=== PATIENT | female | born 1985 | race African-American/Black ===

== ENCOUNTER 2016-08-29 15:23 | Emergency (ER) | payer OTHER ==
[2016-08-29] MEDS ORDERED: fentaNYL* 50 MCG/ML 2 ML VIAL (100 MCG VIAL) IV ONE (15:37)
[2016-08-29] MEDS ORDERED: Dexamethasone IV* 4 MG/ML 1 ML (4 MG) IV SLOW PU ONE (15:38)
[2016-08-29] MEDS ORDERED: Ketorolac INJ* 30 MG/ML 1 ML VIAL IV PUSH ONE (15:38)
[2016-08-29] MEDS ORDERED: Orphenadrine Citrate IV* 30 MG/ML 2 ML VIAL IV ONE (15:38)
[2016-08-29 15:57] LABS: Hematocrit 40 % (35-47); Hemoglobin 12.8 g/dl (12.0-16.0); Mean Corpuscular HGB Conc 32 g/dl (31-36); Mean Corpuscular Hemoglobin 26 pg (27-31); Mean Corpuscular Volume 79 fL (80-97); Mean Platelet Volume 10 um3 (7.4-10.4); Red Blood Count 5.03 10^6/ul (4.0-5.4); Red Cell Distribution Width 14 % (10.5-15); White Blood Count 6.3 10^3/ul (3.5-10.8)
[2016-08-29 15:59] LABS: Urine Bacteria Absent (Absent); Urine Bilirubin Negative (Negative); Urine Glucose Negative (Negative); Urine Nitrite Negative (Negative)
[2016-08-29 16:13] LABS: Albumin 4.2 g/dL (3.2-5.2); BUN/Creatinine Ratio 10.3 (8-20); C Reactive Protein 66.77 mg/L (< 5.00); Calcium 9.7 mg/dL (8.6-10.3); EGFR African American 131.6 (>60); EGFR Non-African American 102.3 (>60); Globulin 3.4 g/dL (2-4); Potassium 2.9 mmol/L (3.5-5.0); Total Bilirubin 1.2 mg/dL (0.2-1.0); Total Protein 7.6 g/dL (6.4-8.9)
[2016-08-29] MEDS ORDERED: Potassium Chlor TAB* 20 MEQ TAB.ER PO ONE (16:24)
[2016-08-29] MEDS ORDERED: KCL 10 MEQ/50 ML IVPREMIX* 10 MEQ/50 ML BAG IV ONE (16:24)
[2016-08-29] MEDS ORDERED: NS 0.9% 1000 ML* 1,000 ML IV ONE (16:24)
[2016-08-29 17:05] LABS: Urine Bacteria 1+ (Absent); Urine Bilirubin Negative (Negative); Urine Glucose Negative (Negative); Urine Nitrite Negative (Negative)
[2016-08-29 18:16] VITALS: BP 122/76
--- NOTE | 2016-08-29 19:08 | ED ---
David Villalobos Claudia, scribed for Jj Arizmendi MD on 08/29/16 at 1539 . Back Pain - HPI Summary HPI Summary: 31 year old female presents to the ED with lumbar back pain. Pt states PMHx of cyst at L4. Pt notes sudden onset of episodic Sx starting yesterday. Pt states the episodes have been lasting longer and are different from her usual pain. Pt denies any UTI or bowel Sx. Pt admits to loss of appetite and more difficultly ambulating. Pt has a neurologist in [facility] whom she sees for the back pain. Pt has an appt with him on Wednesday for a Cervical Spine MRI. She notes that she has to return to pain management and physical therapy but recently moved to the area. - History of Current Complaint Stated Complaint: BACK PAIN Time Seen by Provider: 08/29/16 15:28 Onset/Duration: Still Present Onset/Duration: Started Days Ago - since yesterday, Still Present Timing: Intermittent - episodic Back Pain Location: Is Discrete @ - lumbar Pain Intensity: 8 Pain Scale Used: 0-10 Numeric Character: Sharp - episodes Associated Signs And Symptoms: Negative: Bladder Incontinence, Bowel Incontinence - Allergies/Home Medications Allergies/Adverse Reactions: Allergies Allergy/AdvReac Type Severity Reaction Status Date / Time No Known Allergies Allergy Verified 07/17/16 15:09 PMH/Surg Hx/FS Hx/Imm Hx Previously Healthy: Yes Endocrine/Hematology History: Denies: Hx Diabetes Musculoskeletal History: Reports: Other Musculoskeletal History - neck impingement - Immunization History Date of Tetanus Vaccine: UTD Date of Influenza Vaccine: 2015 Infectious Disease History: Denies: Traveled Outside the in Last 30 Days - Family History Known Family History: Negative: Cardiac Disease - Social History Occupation: Employed Full-time Alcohol Use: None Substance Use Type: Reports: None Smoking Status (MU): Never Smoked Tobacco Review of Systems Constitutional: Negative Eyes: Negative ENT: Negative Cardiovascular: Negative Respiratory: Negative Gastrointestinal: Negative Negative: burning, dysuria, frequency, incontinence Positive: Other - back pain Skin: Negative Neurological: Negative Psychological: Normal All Other Systems Reviewed And Are Negative: Yes Physical Exam - Summary Physical Exam Summary: VITAL SIGNS: Reviewed. GENERAL: Patient is a well developed and nourished female who is lying comfortable in the stretcher. Patient is not in any acute respiratory distress. HEAD AND FACE: No signs of trauma. EYES: PERRLA, EOMI x 2. EARS: Hearing grossly intact. Ear canals and tympanic membranes are WNL MOUTH: Oropharynx within normal limits. NECK: Supple, trachea is midline, no adenopathy, no JVD. CHEST: Symmetric, no tenderness at palpation LUNGS: Clear to auscultation bilaterally. No wheezing or crackles. CVS: RRR, S1 and S2 present, no murmurs or gallops appreciated. ABDOMEN: Soft, NT. No signs of distention. Positive BS. No rebound no guarding, and no masses palpated. EXTREMITIES: FROM in all major joints, no edema, no cyanosis or clubbing. NEURO: Alert and oriented x 3. No acute neurological deficits. Speech is normal and follows commands. Patient is ambulating with out any aid. SKIN: Dry and warm Back: There is no ecchymosis, no deformity, positive paraspinal muscle tenderness in the C spine and lumbar spine. No vertebral tenderness. No saddle anesthesia. Refuses rectal exam. Straight test is negative. Triage Information Reviewed: Yes Vital Signs On Initial Exam: Initial Vitals Temp Pulse Resp BP Pulse Ox 100.3 F 96 18 145/76 96 08/29/16 15:26 08/29/16 15:26 08/29/16 15:26 08/29/16 15:26 08/29/16 15:26 Vital Signs Reviewed: Yes Diagnostics - Vital Signs Vital Signs Temp Pulse Resp BP Pulse Ox 08/29/16 15:26 100.3 F 96 18 145/76 96 - Laboratory Result Diagrams: 08/29/16 15:50 08/29/16 15:50 Lab Statement: Any lab studies that have been ordered have been reviewed, and results considered in the medical decision making process. Re-Evaluation - Re-Evaluation 1 Re-Evaluation Time: 17:18 Change: Improved - Labs are discussed with patient. She notes that she has improved. Back Pain Course/Dx - Course Assessment/Plan: 31 year old female presents to Ed with c/c of lower back pain. She reports she has chronic back pain secondary to herniated disc for which she sees neurosurgery in [place]. She is scheduled o see him on Wednesday but she needs something for pain. She is also scheduled to see pain management. She denies any fecal or urinal incontinence, ambulating without any ache. In ED course blood work- nml limits. No WBC, thereby displaying no infection. The urine analysis was contaminated and I will send for urine cultures, she was given potassium chloride for hypocalcaemia and for pain dexamethasone, toradol, and fentanyl. After medications given Sx improved and pt states pain as 09/01. The pt will be d/c with follow-up with her neurosurgeon. - Diagnoses Differential Diagnosis/HQI/PQRI: Positive: Arthritis, Cauda Equina Syndrome, Compressive Cord Syndrome, Herniated Disc, Strain, Sprain Provider Diagnoses: BACK PAIN, Hypokalemia Discharge - Discharge Plan Condition: Stable Disposition: HOME Prescriptions: Ibuprofen TAB* [Motrin TAB* 600 MG] 600 mg PO Q8H PRN #30 tab PRN Reason: Pain Methylprednisolone [Medrol Dosepak 4 MG*] 4 mg PO .SEE GREGORY INSTRUCTION #1 packet oxyCODONE/Acetamin 5/325 MG* [Percocet 5/325 TAB*] 1 tab PO Q6H PRN #12 tab MDD max 4 tabs / day PRN Reason: Pain Patient Education Materials: Back Pain (ED), Driving Restrictions (ED), Ibuprofen (By mouth), Methylprednisolone (By mouth), Oxycodone/Acetaminophen ( By mouth) Additional Instructions: PLEASE FOLLOW-UP WITH YOUR NEUROSURGEON AT YOUR APPOINTMENT THIS WEDNESDAY. PLEASE SEE THE DRIVING RESTRICTIONS WHILE TAKING THE PRESCRIBED MEDICATIONS. The documentation as recorded by the David carlos Claudia accurately reflects the service I personally performed and the decisions made by , Jj Arizmendi MD.
== END 2016-08-29 18:13 | disposition home or self-care (01) ==
LOC: ED 15:23
DX: E87.6 Hypokalemia (principal); M54.5 Low back pain
CPT/HCPCS: 36415; 80053; 81003; 81015; 83735; 85025; 86140; 87086; 96360; 96365; 96366; 96374; 96375; 99283; A9270-GY; J1100; J1885; J2360; J3010; J3480

== ENCOUNTER 2016-10-01 21:40 | Emergency (ER) | payer OTHER ==
[2016-10-01] MEDS ORDERED: Ibuprofen TAB* 600 MG PO ONE (22:57)
[2016-10-01] MEDS ORDERED: Diazepam TAB(*) 5 MG PO ONE (22:57)
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
[2016-10-02 00:08] VITALS: BP 117/80
== END 2016-10-02 00:06 | disposition home or self-care (01) ==
LOC: ED 21:40
DX: S13.9XXA Sprain of joints and ligaments of unspecified parts of neck, initial encounter (principal); M54.9 Dorsalgia, unspecified; M54.10 Radiculopathy, site unspecified; Y09 Assault by unspecified means; Y93.9 Activity, unspecified; Y92.9 Unspecified place or not applicable; Y99.9 Unspecified external cause status
CPT/HCPCS: 99282; A9270-GY

== ENCOUNTER 2016-10-03 15:51 | Emergency (ER) | payer OTHER ==
[2016-10-03] MEDS ORDERED: Diazepam TAB(*) 5 MG PO ONE (17:26)
[2016-10-03 18:04] VITALS: BP 101/70
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
== END 2016-10-03 18:02 | disposition home or self-care (01) ==
LOC: ED 15:51
DX: M54.2 Cervicalgia (principal); M54.5 Low back pain; R20.9 Unspecified disturbances of skin sensation
CPT/HCPCS: 99283; A9270-GY

== ENCOUNTER 2016-11-16 17:22 | Emergency (ER) | payer OTHER ==
[2016-11-16 18:56] VITALS: BP 132/77
== END 2016-11-16 20:13 | disposition left against medical advice (07) ==
LOC: ED 17:22
DX: J35.1 Hypertrophy of tonsils (principal); Z53.21 Procedure and treatment not carried out due to patient leaving prior to being seen by health care provider
CPT/HCPCS: 87651

== ENCOUNTER 2016-11-18 14:50 | Emergency (ER) | payer OTHER ==
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
[2016-11-18 16:05] LABS: Urine Bacteria Absent (Absent); Urine Bilirubin Negative (Negative); Urine Glucose Negative (Negative); Urine Nitrite Negative (Negative)
[2016-11-18 16:21] LABS: Benzodiazepine Urine Screen Presumptive Positive (None Detect)
[2016-11-18 17:52] VITALS: BP 118/64
[2016-11-18 18:36] LABS: Hematocrit 37 % (35-47); Mean Corpuscular HGB Conc 32 g/dl (31-36); Mean Corpuscular Hemoglobin 25 pg (27-31); Mean Corpuscular Volume 79 fL (80-97); Mean Platelet Volume 9 um3 (7.4-10.4); Red Blood Count 4.73 10^6/ul (4.0-5.4); Red Cell Distribution Width 15 % (10.5-15); White Blood Count 8.4 10^3/ul (3.5-10.8)
[2016-11-18 18:59] LABS: ALT 8 U/L (7-52); AST 11 U/L (13-39); Acetaminophen < 15 mcg/mL; Alcohol < 10 mg/dL (<10); Alkaline Phosphatase 41 U/L (34-104); Anion Gap 9 mmol/L (2-11); BUN/Creatinine Ratio 9.1 (8-20); Blood Urea Nitrogen 6 mg/dL (6-24); CO2 Carbon Dioxide 24 mmol/L (22-32); Calcium 9.6 mg/dL (8.6-10.3); Chloride 104 mmol/L (101-111); EGFR African American 136.2 (>60); EGFR Non-African American 105.9 (>60); Globulin 3.3 g/dL (2-4); Glucose 103 mg/dL (70-100); Potassium 3.4 mmol/L (3.5-5.0); Salicylate < 2.50 mg/dL (<30); Sodium 137 mmol/L (133-145); Total Protein 7.3 g/dL (6.4-8.9)
[2016-11-18 19:07] LABS: TSH (Thyroid Stimulating Horm) 1.02 mcIU/mL (0.34-5.60)
== END 2016-11-18 21:13 | disposition home or self-care (01) ==
LOC: ED 14:50
DX: F34.9 Persistent mood [affective] disorder, unspecified (principal); F32.9 Major depressive disorder, single episode, unspecified
CPT/HCPCS: 36415; 80053; 80307; 80320; 80329; 81003; 81015; 84443; 85025; 87086; 99283; G0480

== ENCOUNTER 2016-11-27 09:23 | Emergency (ER) | payer OTHER ==
[2016-11-27] MEDS ORDERED: Ondansetron INJ* 2 MG/ML VIAL IV ONE (09:58)
[2016-11-27] MEDS ORDERED: NS 0.9% 1000 ML* 1,000 ML IV ONE (09:58)
[2016-11-27 10:36] LABS: Hematocrit 38 % (35-47); Hemoglobin 12.5 g/dl (12.0-16.0); Mean Corpuscular HGB Conc 33 g/dl (31-36); Mean Corpuscular Hemoglobin 26 pg (27-31); Mean Corpuscular Volume 78 fL (80-97); Mean Platelet Volume 9 um3 (7.4-10.4); Red Blood Count 4.85 10^6/ul (4.0-5.4); Red Cell Distribution Width 15 % (10.5-15); White Blood Count 7.9 10^3/ul (3.5-10.8)
[2016-11-27 10:53] LABS: Urine Bacteria Absent (Absent); Urine Bilirubin Negative (Negative); Urine Glucose Negative (Negative); Urine Nitrite Negative (Negative)
[2016-11-27 11:06] LABS: Albumin 4.4 g/dL (3.2-5.2); BUN/Creatinine Ratio 14.1 (8-20); C Reactive Protein 2.75 mg/L (< 5.00); Calcium 9.7 mg/dL (8.6-10.3); EGFR African American 141.1 (>60); EGFR Non-African American 109.7 (>60); Globulin 3.3 g/dL (2-4); Potassium 3.7 mmol/L (3.5-5.0); Total Bilirubin 0.7 mg/dL (0.2-1.0); Total Protein 7.7 g/dL (6.4-8.9)
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
--- NOTE | 2016-11-27 11:28 | ED ---
Abdominal Pain/Female - HPI Summary HPI Summary: N/V/D x 5 days and now sharp abdominal pains and internal vaginal pains. Patient denies fever, chills, PATEL, SOB or CP. No recent illnesses or contacts. She is able to keep fluids down. She is not sure if she is . - History of Current Complaint Chief Complaint: EDAbdPain Stated Complaint: STOMACH,GROIN PAIN Time Seen by Provider: 11/27/16 09:41 Hx Obtained From: Patient, Family/Coal Grader ?: No Onset/Duration: Gradual Onset Timing: Constant Severity Initially: Mild Severity Currently: Severe Pain Intensity: 8 Location: Diffuse Radiates: No Character: Sharp Aggravating Factor(s): Nothing Alleviating Factor(s): Nothing Associated Signs and Symptoms: Positive: Decreased Appetite, Nausea, Vomiting. Negative: Vaginal Bleeding, Vaginal Discharge Allergies/Adverse Reactions: Allergies Allergy/AdvReac Type Severity Reaction Status Date / Time Latex Allergy Rash And Verified 11/18/16 14:53 Itching PMH/Surg Hx/FS Hx/Imm Hx Endocrine/Hematology History: Denies: Hx Diabetes Musculoskeletal History: Reports: Other Musculoskeletal History - neck impingement, herniated discs Psychiatric History: Reports: Hx Depression Denies: Hx Anxiety, Hx Eating Disorder, Hx of Violent Episodes Against Others - Immunization History Date of Tetanus Vaccine: UTD Date of Influenza Vaccine: 2015 Infectious Disease History: Denies: Traveled Outside the [place] in Last 30 Days - Family History Known Family History: Positive: None Negative: Cardiac Disease - Social History Occupation: Employed Part-time Lives: With Family Alcohol Use: None Substance Use Type: Reports: None Smoking Status (MU): Never Smoked Tobacco Review of Systems Negative: Fever, Fatigue Negative: Chest Pain Negative: Shortness Of Breath Positive: Abdominal Pain, Vomiting, Diarrhea, Nausea Negative: Myalgia Negative: Rash All Other Systems Reviewed And Are Negative: Yes Physical Exam Triage Information Reviewed: Yes Vital Signs On Initial Exam: Initial Vitals Temp Pulse Resp BP Pulse Ox 97.3 F 95 16 112/80 100 11/27/16 09:26 11/27/16 09:26 11/27/16 09:26 11/27/16 09:26 11/27/16 09:26 Vital Signs Reviewed: Yes Appearance: Positive: Well-Appearing, No Pain Distress, Well-Nourished Skin: Positive: Warm, Skin Color Reflects Adequate Perfusion, Dry, Soft Head/Face: Positive: Normal Head/Face Inspection Eyes: Positive: EOMI, MINE, Conjunctiva Clear ENT: Positive: Hearing grossly normal, Pharynx normal Neck: Positive: Supple, Nontender, No Lymphadenopathy Respiratory/Lung Sounds: Positive: Clear to Auscultation, Breath Sounds Present Cardiovascular: Positive: RRR Abdomen Description: Positive: Soft. Negative: Nontender - diffuse, mild TTP, CVA Tenderness (R), CVA Tenderness (L), Distended, Guarding Bowel Sounds: Positive: Present Pelvic Exam: Negative: active bleeding Musculoskeletal: Negative: Edema Left, Edema Right Neurological: Positive: Sensory/Motor Intact, Alert, Oriented to Person Place, Time, NV Bundle Intact Distally, Normal Gait Psychiatric: Positive: Affect/Mood Appropriate AVPU Assessment: Alert - Teller Coma Scale Coma Scale Total: 15 Diagnostics - Vital Signs Vital Signs Temp Pulse Resp BP Pulse Ox 11/27/16 10:28 87 100 11/27/16 09:26 97.3 F 95 16 112/80 100 - Laboratory Lab Results: Lab Results 11/27/16 11/27/16 11/27/16 Range/Units 10:20 10:20 10:20 WBC 7.9 (3.5-10.8) 10^3/ul RBC 4.85 (4.0-5.4) 10^6/ul Hgb 12.5 (12.0-16.0) g/dl Hct 38 (35-47) % MCV 78 L (80-97) fL MCH 26 L (27-31) pg MCHC 33 (31-36) g/dl RDW 15 (10.5-15) % Plt Count 279 (150-450) 10^3/ul MPV 9 (7.4-10.4) um3 Neut % (Auto) 76.9 (38-83) % Lymph % (Auto) 17.1 L (25-47) % Andrews % (Auto) 5.0 (1-9) % Eos % (Auto) 0.7 (0-6) % Baso % (Auto) 0.3 (0-2) % Absolute Neuts (auto) 6.1 (1.5-7.7) 10^3/ul Absolute Lymphs (auto) 1.3 (1.0-4.8) 10^3/ul Absolute Monos (auto) 0.4 (0-0.8) 10^3/ul Absolute Eos (auto) 0.1 (0-0.6) 10^3/ul Absolute Basos (auto) 0 (0-0.2) 10^3/ul Absolute Nucleated RBC 0.01 10^3/ul Nucleated RBC % 0.1 Sodium Pending Potassium Pending Chloride Pending Carbon Dioxide Pending Anion Gap Pending BUN Pending Creatinine Pending Est GFR ( Amer) Pending Est GFR (Non-Af Amer) Pending BUN/Creatinine Ratio Pending Glucose Pending Calcium Pending Total Bilirubin Pending AST Pending ALT Pending Alkaline Phosphatase Pending C-Reactive Protein Pending Total Protein Pending Albumin Pending Globulin Pending Albumin/Globulin Ratio Pending Amylase Pending Lipase Pending Beta HCG, Quant 455.98 mIU/mL Urine Color Yellow Urine Appearance Clear Urine pH 6.0 (5-9) Ur Specific [place] 1.018 (1.010-1.030) Urine Protein Negative (Negative) Urine Ketones Negative (Negative) Urine Blood Negative (Negative) Urine Nitrate Negative (Negative) Urine Bilirubin Negative (Negative) Urine Urobilinogen Negative (Negative) Ur Leukocyte Esterase Trace H (Negative) Urine WBC (Auto) Trace(0-5/hpf) (Absent) Urine RBC (Auto) Absent (Absent) Ur Squamous Epith Cells Present H (Absent) Urine Bacteria Absent (Absent) Urine Glucose Negative (Negative) Result Diagrams: 11/27/16 10:20 11/27/16 10:20 Lab Statement: Any lab studies that have been ordered have been reviewed, and results considered in the medical decision making process. - Ultrasound No standard instances Ultrasound Interpretation: No Acute Changes Ultrasound Interpretation Completed By: Radiologist - suggestion of a gestational sac Abdominal Pain Fem Course/Dx - Diagnoses Differential Diagnosis: Positive: Abdominal Aortic Aneurysm, Appendicitis, Bowel Obstruction, Constipation, Ectopic , Ovarian Cyst, Pancreatitis, , Urinary Tract Infection Provider Diagnoses: , Ovarian cyst Discharge - Discharge Plan Condition: Stable Disposition: HOME Patient Education Materials: (ED), Ovarian Cyst (ED) Referrals: Jj Funez MD [Medical Doctor] - [facility] [Provider Group] Additional Instructions: Please call [facility] for an appointment. Follow-up with them as directed.
[2016-11-27 11:36] VITALS: BP 121/61
== END 2016-11-27 11:43 | disposition home or self-care (01) ==
LOC: ED 09:23
DX: O34.80 Maternal care for other abnormalities of pelvic organs, unspecified trimester (principal); N83.209 Unspecified ovarian cyst, unspecified side; R10.9 Unspecified abdominal pain; R11.2 Nausea with vomiting, unspecified; R19.7 Diarrhea, unspecified
CPT/HCPCS: 36415; 76830; 80053; 81003; 81015; 82150; 83605; 83690; 84702; 85025; 86140; 87086; 99282; J2405

== ENCOUNTER 2017-03-04 17:25 | Emergency (ER) | payer OTHER ==
[2017-03-04 19:06] LABS: Hematocrit 38 % (35-47); Hemoglobin 12.2 g/dl (12.0-16.0); Mean Corpuscular HGB Conc 32 g/dl (31-36); Mean Corpuscular Hemoglobin 27 pg (27-31); Mean Corpuscular Volume 84 fL (80-97); Mean Platelet Volume 9 um3 (7.4-10.4); Red Blood Count 4.53 10^6/ul (4.0-5.4); Red Cell Distribution Width 16 % (10.5-15); White Blood Count 10.6 10^3/ul (3.5-10.8)
[2017-03-04 19:15] LABS: Urine Bilirubin Negative (Negative); Urine Glucose Negative (Negative); Urine Nitrite Negative (Negative)
[2017-03-04 19:20] LABS: BUN/Creatinine Ratio 14.8 (8-20); Calcium 9.6 mg/dL (8.6-10.3); EGFR African American 171.7 (>60); EGFR Non-African American 133.5 (>60); Potassium 3.5 mmol/L (3.5-5.0)
--- NOTE | 2017-03-04 21:04 | ED ---
Fuentes Villalobos Salem, scribed for Yan Friedman MD on 03/04/17 at 2041 . Abdominal Pain/Female - HPI Summary HPI Summary: Patient is a 31 y/o F who presents to the ED with lower abd pain for the past 3 days. She reports nerve pain shooting down into bilateral lower extremities with lumbar pain. She also reports taking Tylenol for back pain with little alleviation. Pt states that she is 4 months and that the last time she saw her SENIOR QUALITATIVE RESEARCHER was last month. - History of Current Complaint Chief Complaint: EDAbdPain Stated Complaint: 18 WEEKS PREG ABD PAIN Time Seen by Provider: 03/04/17 20:36 Hx Obtained From: Patient Onset/Duration: Gradual Onset, Lasting Days, Still Present Timing: Days Severity Initially: Moderate Severity Currently: Moderate Pain Intensity: 9 Pain Scale Used: 0-10 Numeric Location: Discrete At: LUQ, Discrete At: LLQ Radiates: No Character: Cramping Aggravating Factor(s): Nothing Alleviating Factor(s): Nothing Associated Signs and Symptoms: Positive: Other: - Nerve pain. Allergies/Adverse Reactions: Allergies Allergy/AdvReac Type Severity Reaction Status Date / Time Latex Allergy Rash And Verified 12/08/16 22:13 Itching PMH/Surg Hx/FS Hx/Imm Hx Endocrine/Hematology History: Denies: Hx Diabetes Musculoskeletal History: Reports: Other Musculoskeletal History - neck impingement, herniated discs Psychiatric History: Reports: Hx Depression Denies: Hx Anxiety, Hx Eating Disorder, Hx of Violent Episodes Against Others - Immunization History Date of Tetanus Vaccine: UTD Date of Influenza Vaccine: 2015 Infectious Disease History: Denies: Traveled Outside the [place] in Last 30 Days - Family History Known Family History: Negative: Cardiac Disease - Social History Alcohol Use: None Hx Substance Use: No Substance Use Type: Reports: None Hx Tobacco Use: No Smoking Status (MU): Never Smoked Tobacco Review of Systems Positive: Abdominal Pain Musculoskeletal: Other - Lumbar pain. Neurological: Other - Nerve pain shooting down into bilateral lower extremities. All Other Systems Reviewed And Are Negative: Yes Physical Exam Triage Information Reviewed: Yes Vital Signs On Initial Exam: Initial Vitals Temp Pulse Resp BP Pulse Ox 97.7 F 96 20 118/61 99 03/04/17 17:36 03/04/17 17:36 03/04/17 17:36 03/04/17 17:36 03/04/17 17:36 Vital Signs Reviewed: Yes Appearance: Positive: Well-Appearing, No Pain Distress Skin: Positive: Warm Head/Face: Positive: Normal Head/Face Inspection Eyes: Positive: MINE ENT: Positive: Hearing grossly normal Neck: Positive: Supple Respiratory/Lung Sounds: Positive: Clear to Auscultation, Breath Sounds Present Cardiovascular: Positive: RRR Abdomen Description: Positive: Nontender, No Organomegaly, Soft, Other: - gravid. Negative: Guarding Bowel Sounds: Positive: Present Musculoskeletal: Positive: Strength/ROM Intact Neurological: Positive: Alert, Oriented to Person Place, Time, Normal Gait Diagnostics - Vital Signs Vital Signs Temp Pulse Resp BP Pulse Ox 03/04/17 19:25 97.3 F 88 102/67 98 03/04/17 18:57 98.1 F 85 20 120/74 100 03/04/17 17:36 97.7 F 96 20 118/61 99 - Laboratory Lab Results: Lab Results 03/04/17 03/04/17 03/04/17 Range/Units 18:50 18:50 18:50 WBC 10.6 (3.5-10.8) 10^3/ul RBC 4.53 (4.0-5.4) 10^6/ul Hgb 12.2 (12.0-16.0) g/dl Hct 38 (35-47) % MCV 84 (80-97) fL MCH 27 (27-31) pg MCHC 32 (31-36) g/dl RDW 16 H (10.5-15) % Plt Count 224 (150-450) 10^3/ul MPV 9 (7.4-10.4) um3 Sodium 133 (133-145) mmol/L Potassium 3.5 (3.5-5.0) mmol/L Chloride 105 (101-111) mmol/L Carbon Dioxide 20 L (22-32) mmol/L Anion Gap 8 (2-11) mmol/L BUN 8 (6-24) mg/dL Creatinine 0.54 (0.51-0.95) mg/dL Est GFR ( Amer) 171.7 (>60) Est GFR (Non-Af Amer) 133.5 (>60) BUN/Creatinine Ratio 14.8 (8-20) Glucose 93 (70-100) mg/dL Calcium 9.6 (8.6-10.3) mg/dL Urine Color Yellow Urine Appearance Clear Urine pH 5.0 (5-9) Ur Specific [place] 1.024 (1.010-1.030) Urine Protein Negative (Negative) Urine Ketones Negative (Negative) Urine Blood Negative (Negative) Urine Nitrate Negative (Negative) Urine Bilirubin Negative (Negative) Urine Urobilinogen Negative (Negative) Ur Leukocyte Esterase Negative (Negative) Urine Glucose Negative (Negative) Result Diagrams: 03/04/17 18:50 03/04/17 18:50 Lab Statement: Any lab studies that have been ordered have been reviewed, and results considered in the medical decision making process. - Ultrasound No standard instances Ultrasound Interpretation Completed By: Radiologist - Single live intrauterine . Gestational age 18 weeks 1 day. heart rate 147 bpm. Closed cervix. Variable presentation. Posterior placenta without previa. Re-Evaluation - Re-Evaluation First Eval Re-Evaluation Time: 23:06 Comment: Reviewed results. Abdominal Pain Fem Course/Dx - Course Course Of Treatment: 31 y/o F presents with lower abd pain for the past 3 days. She reports nerve pain shooting down into bilateral lower extremities with lumbar pain. US shows, per radiology, single live intrauterine . Gestational age 18 weeks 1 day. heart rate 147 bpm. Closed cervix. Variable presentation. Posterior placenta without previa. Pt will be DC'd to follow up. - Diagnoses Provider Diagnoses: Abdominal pain, Discharge - Discharge Plan Condition: Stable Disposition: HOME Patient Education Materials: Abdominal Pain (ED), (ED) Referrals: Jj Funez MD [Primary Care Provider] - Kenneth House MD [Medical Doctor] - Additional Instructions: Please follow up with Dr. House (SENIOR QUALITATIVE RESEARCHER). Take Tylenol for pain. The documentation as recorded by the Fuentes carlos Salem accurately reflects the service I personally performed and the decisions made by me, Yan Friedman MD.
[2017-03-04 23:22] VITALS: BP 123/76
--- NOTE | 2017-03-05 07:46 | RAD ---
HISTORY: Cramping pain. The gestational age by first ultrasound is: 18 weeks, 1 day COMPARISONS: December 08, 2016 TECHNIQUE: Multiple transverse and longitudinal ultrasound images were obtained of the gravid uterus using Grayscale, color Doppler, and M-mode Doppler imaging. FINDINGS: /PLACENTAL EVALUATION: Number of fetuses: 1 Presentation: Variable cardiac activity: 147 bpm Gross motion: Observed Placenta position: Posterior Amniotic fluid volume: Normal BIOMETRY: Biparietal diameter: 3.68 cm 17 weeks, 2 days Head circumference: 14.21 cm 17 weeks, 4 days Abdominal circumference: 12.8 cm 18 weeks, 3 days Femur length: 2.7 cm 18 weeks, 3 days HC/AC: 1.11 Estimated weight: 230 grams, +/- 34 grams GESTATIONAL AGE: The composite gestational age is: 18 weeks, 1 day. The RODOLFO is: August 05, 2017. This is concordant with previous ultrasound. ANATOMY: No evaluation of anatomy was performed as part of this limited evaluation CERVIX: The cervix is long and closed, without funneling.. OTHER: None IMPRESSION: SINGLE LIVE INTRAUTERINE GESTATION AT 18 WEEKS AND 1 DAY BY COMPOSITE GESTATIONAL AGE.
== END 2017-03-04 23:19 | disposition home or self-care (01) ==
LOC: ED 17:25
DX: O26.892 Other specified pregnancy related conditions, second trimester (principal); R10.84 Generalized abdominal pain; Z3A.18 18 weeks gestation of pregnancy
CPT/HCPCS: 36415; 76815; 80048; 81003; 84702; 85027; 99283

== ENCOUNTER 2017-03-06 23:42 | Emergency (ER) | payer OTHER ==
[2017-03-07 01:20] LABS: Urine Bilirubin Negative (Negative); Urine Glucose Negative (Negative); Urine Nitrite Negative (Negative)
--- NOTE | 2017-03-07 01:40 | ED ---
King Villalobos Rebecca, scribed for Yan Friedman MD on 03/07/17 at 0052 . Abdominal Pain/Female - HPI Summary HPI Summary: Pt is a 31 y/o F BIBA who presents to ED c/o bilateral lower abd pain. Pain began 5 days ago and has been constant and worsening since onset. Pain is currently severe, ranked 9/10 and characterized as cramping. Sx aggravated by deep breaths and alleviated by nothing. Denies SOB, N/V, vaginal bleeding or vaginal D/C. Pt is 18 weeks . Pt was seen by [facility] [place] [facility] 2 days ago for similar sx with an US performed. - History of Current Complaint Chief Complaint: EDAbdPain Stated Complaint: CHEST PAIN Time Seen by Provider: 03/07/17 00:50 Hx Obtained From: Patient Onset/Duration: Lasting Weeks - 5 days, Still Present Timing: Constant Severity Currently: Severe Pain Intensity: 9 Pain Scale Used: 0-10 Numeric Location: Discrete At: LUQ, Discrete At: LLQ Radiates: No Character: Cramping Aggravating Factor(s): Deep Breaths Alleviating Factor(s): Nothing Associated Signs and Symptoms: Positive: Negative. Negative: Vaginal Bleeding, Vaginal Discharge, Nausea, Vomiting Allergies/Adverse Reactions: Allergies Allergy/AdvReac Type Severity Reaction Status Date / Time Latex Allergy Rash And Verified 12/08/16 22:13 Itching PMH/Surg Hx/FS Hx/Imm Hx Endocrine/Hematology History: Denies: Hx Diabetes Musculoskeletal History: Reports: Other Musculoskeletal History - neck impingement, herniated discs Psychiatric History: Reports: Hx Depression Denies: Hx Anxiety, Hx Eating Disorder, Hx of Violent Episodes Against Others - Immunization History Date of Tetanus Vaccine: UTD Date of Influenza Vaccine: 2015 Infectious Disease History: No Infectious Disease History: Denies: Traveled Outside the [place] in Last 30 Days - Family History Known Family History: Negative: Cardiac Disease - Social History Alcohol Use: None Hx Substance Use: No Substance Use Type: Reports: None Hx Tobacco Use: No Smoking Status (MU): Never Smoked Tobacco Review of Systems Negative: Shortness Of Breath Positive: Abdominal Pain - Lower abdominal cramping. Negative: Vomiting, Nausea Positive: other - Denies vaginal bleeding. Negative: discharge All Other Systems Reviewed And Are Negative: Yes Physical Exam Triage Information Reviewed: Yes Vital Signs On Initial Exam: Initial Vitals Temp Pulse Resp BP Pulse Ox 98.5 F 74 16 103/67 99 03/07/17 00:06 03/07/17 00:06 03/07/17 00:06 03/07/17 00:06 03/07/17 00:06 Vital Signs Reviewed: Yes Appearance: Positive: Well-Appearing, Pain Distress - minimal discomfort Skin: Positive: Warm Head/Face: Positive: Normal Head/Face Inspection Eyes: Positive: MINE ENT: Positive: Hearing grossly normal Neck: Positive: Supple Respiratory/Lung Sounds: Positive: Breath Sounds Present Cardiovascular: Positive: RRR Abdomen Description: Positive: Nontender, Soft, Other: - gravid. Negative: CVA Tenderness (R), CVA Tenderness (L) Bowel Sounds: Positive: Present Musculoskeletal: Positive: Strength/ROM Intact Neurological: Positive: Sensory/Motor Intact Diagnostics - Vital Signs Vital Signs Temp Pulse Resp BP Pulse Ox 03/07/17 00:18 97.9 F 76 16 103/67 99 03/07/17 00:06 98.5 F 74 16 103/67 99 - Laboratory Lab Results: Lab Results 03/07/17 Range/Units 01:00 Urine Color Straw Urine Appearance Clear Urine pH 6.0 (5-9) Ur Specific [place] 1.005 L (1.010-1.030) Urine Protein Negative (Negative) Urine Ketones Negative (Negative) Urine Blood Negative (Negative) Urine Nitrate Negative (Negative) Urine Bilirubin Negative (Negative) Urine Urobilinogen Negative (Negative) Ur Leukocyte Esterase Negative (Negative) Urine Glucose Negative (Negative) Pertinent Lab Values Are: WNL Lab Statement: Any lab studies that have been ordered have been reviewed, and results considered in the medical decision making process. Re-Evaluation - Re-Evaluation First Eval Change: Improved Abdominal Pain Fem Course/Dx - Course Course Of Treatment: Pt is a 31 y/o F BIBA who presents to ED c/o constant, severe bilateral lower abd pain charcaterized as cramping for 5 days. Sx aggravated by deep breaths and alleviated by nothing. Denies SOB, N/V, vaginal bleeding or vaginal D/C. Pt is 18 weeks . Pt was seen by [facility] [place] [facility] 2 days ago for similar sx with an US performed. She will be D/C to home with Dx of and abdominal pain with a follow up with her PCP. She understands and agrees. Patient's medications reviewed this visit. - Diagnoses Provider Diagnoses: , Abdominal pain Discharge - Discharge Plan Condition: Stable Disposition: HOME Patient Education Materials: (ED), Abdominal Pain (ED) Referrals: Jj Funez MD [Primary Care Provider] - 3 Days The documentation as recorded by the King carlos Rebecca accurately reflects the service I personally performed and the decisions made by me, Yan Friedman MD.
[2017-03-07 02:56] VITALS: BP 110/70
== END 2017-03-07 02:30 | disposition home or self-care (01) ==
LOC: ED 23:42
DX: O26.892 Other specified pregnancy related conditions, second trimester (principal); R10.30 Lower abdominal pain, unspecified; Z3A.18 18 weeks gestation of pregnancy; F32.9 Major depressive disorder, single episode, unspecified; Z91.040 Latex allergy status
CPT/HCPCS: 81003; 99283

== ENCOUNTER 2017-05-14 16:59 | Emergency (ER) | payer OTHER ==
[2017-05-14] MEDS ORDERED: NS 0.9% 1000 ML* 1,000 ML IV ONE (17:23)
[2017-05-14 17:56] LABS: Hematocrit 34 % (35-47); Mean Corpuscular HGB Conc 33 g/dl (31-36); Mean Corpuscular Hemoglobin 27 pg (27-31); Mean Corpuscular Volume 81 fL (80-97); Mean Platelet Volume 9 um3 (7.4-10.4); Red Blood Count 4.14 10^6/ul (4.0-5.4); Red Cell Distribution Width 14 % (10.5-15); White Blood Count 9.9 10^3/ul (3.5-10.8)
[2017-05-14 18:10] LABS: Urine Bacteria Absent (Absent); Urine Bilirubin Negative (Negative); Urine Glucose Negative (Negative); Urine Nitrite Negative (Negative)
[2017-05-14 18:12] LABS: Albumin 3.3 g/dL (3.2-5.2); BUN/Creatinine Ratio 12.8 (8-20); EGFR African American 201.5 (>60); EGFR Non-African American 156.7 (>60); Globulin 3.4 g/dL (2-4); Potassium 3.3 mmol/L (3.5-5.0); Total Bilirubin 0.5 mg/dL (0.2-1.0); Total Protein 6.7 g/dL (6.4-8.9)
[2017-05-14] MEDS ORDERED: Potassium Chloride LIQUID* 20 MEQ PACKET PO ONE (18:13)
--- NOTE | 2017-05-14 20:20 | RAD ---
INDICATION: Syncope Comparison: Previous ultrasound dated March 04, 2017 with growth parameters yielding an average gestational age of 18 weeks. Multiple transabdominal real time images of the gravid uterus were obtained. This exam demonstrates a single intrauterine in the Cephalic presentation. heart and limb motion were noted. The heart rate was 144 beats per minute. The placenta was located at the fundus posteriorly. There is no placenta previa. The amniotic fluid volume appeared to be within normal limits. The cervix is closed measuring approximately 3.8 cm in length. Biparietal diameter (cm) 6.9 which corresponds to a gestational age of 27 weeks and 6 days. Head circumference (cm) 25.7 which corresponds to a gestational age of 27 weeks and 6 days. abdominal circumference(cm) 23.23 which corresponds to a gestational age of 97 weeks and 5 days. femur length (cm) 5.23 which corresponds to a gestational age of 28 weeks. The composite estimated gestational age was 27 weeks and 6 days. The estimated weight at this time is 1115 grams +/- 163 grams. IMPRESSION: Limited second trimester sonogram is consistent with a normal intrauterine with growth parameters yielding an average gestational age of 27 weeks and 6 days.
[2017-05-14 21:25] VITALS: BP 105/66
--- NOTE | 2017-05-14 23:32 | ED ---
King Villalobos Rebecca, scribed for Robert Toro on 05/14/17 at 204 . Progress - Progress Note Progress Note: Signed out by Dr. Arizmendi as shift change, pending disposition, awaiting US. - Results/Orders Results/Orders: US, as read by radiologist, reveals: Limited second trimester sonogram is consistent with a normal intrauterine with growth parameters yielding an average gestational age of 27 weeks and 6 days. ED physician reviewed radiology report and agrees. EKG was taken at 195. Normal sinus rhythm and rate at 88 bpm. No acute changes. Course/Dx - Course Course Of Treatment: Pt was signed out by Dr. Arizmendi, pending diposition, awaiting US. US reveals no acute findings. EKG is sinus rhythm with no acute changes. Discussed care of pt with Dr. Barajas ([employer]) who advises that the pt be D/C to home and follow up with her PCP. Her condition is stable and disposition is to be discharged to home with Dx of syncope and with a follow up with her PCP. She understands and agrees. Patient medications reviewed this visit. - Diagnoses Provider Diagnoses: Syncope - Provider Notifications Discussed Care Of Patient With: Charles Barajas Time Discussed With Above Provider: 20:37 Instructed by Provider To: Other - Advised that the pt be D/C to home and follow up with her PCP The documentation as recorded by the King carlos Rebecca accurately reflects the service I personally performed and the decisions made by , Robert Toro.
--- NOTE | 2017-05-15 08:18 | ED ---
David Villalobos Angela, scribed for Jj Arizmendi MD on 05/14/17 at 1723 . 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 Pt reports that she was walking up a hill when she became weak and short of breath. Pt notes that she felt her heart beating fast and lost her hearing. She then "gracefully fell" to the ground on grass and had unwitnessed LOC. The time of LOC is unknown. Pt denies vaginal bleeding, vaginal discharge. She does endorse mild abd cramping. Pt notes she feels dizzy all the time secondary to her . Pt is followed up at [facility] with ObGy, Dr. Garrett Chopra. - History Of Current Complaint Chief Complaint: EDSyncope Time Seen by Provider: 05/14/17 17:13 Hx Obtained From: Patient Onset/Duration: Sudden Onset Context: Unwitnessed, Loss Of Consciousness Activity At Onset: Exertion Aggravating Factor(s): Exertion Alleviating Factor(s): Spontaneous Resolution Associated Signs And Symptoms: Shortness Of Breath, Weakness, Other - hearing loss (now resolved), fast heart rate (now resolved), - Allergies/Home Medications Allergies/Adverse Reactions: Allergies Allergy/AdvReac Type Severity Reaction Status Date / Time Latex Allergy Rash And Verified 12/08/16 22:13 Itching PMH/Surg Hx/FS Hx/Imm Hx Endocrine/Hematology History: Denies: Hx Diabetes Musculoskeletal History: Reports: Other Musculoskeletal History - neck impingement, herniated discs Psychiatric History: Reports: Hx Depression Denies: Hx Anxiety, Hx Eating Disorder, Hx of Violent Episodes Against Others - Immunization History Date of Tetanus Vaccine: UTD Date of Influenza Vaccine: 2016 Infectious Disease History: No Infectious Disease History: Denies: Traveled Outside the [place] in Last 30 Days - Family History Known Family History: Negative: Cardiac Disease - Social History Alcohol Use: None Hx Substance Use: No Substance Use Type: Reports: None Hx Tobacco Use: No Smoking Status (MU): Never Smoked Tobacco Review of Systems Negative: Fever, Chills ENT: Negative Positive: Palpitations - fast heart rate Positive: Shortness Of Breath Positive: Other - abdominal cramping Negative: other - vaginal bleeding and discharge Skin: Negative Neurological: Other - dizziness Positive: Weakness, Syncope - LOC All Other Systems Reviewed And Are Negative: Yes Physical Exam - Summary Physical Exam Summary: VITAL SIGNS: Reviewed. GENERAL: Patient is a well-developed and nourished female who is lying comfortable in the stretcher. Patient is not in any acute respiratory distress. HEAD AND FACE: No signs of trauma. ~No ecchymosis, hematomas or skull depressions. No sinus tenderness. EYES: PERRLA, EOMI x 2, No injected conjunctiva, no nystagmus. EARS: Hearing grossly intact. Ear canals and tympanic membranes are within normal limits. MOUTH: Oropharynx within normal limits. NECK: Supple, trachea is midline, no adenopathy, no JVD, no carotid bruit, no c- spine tenderness, neck with full ROM. CHEST: Symmetric, no tenderness at palpation LUNGS: Clear to auscultation bilaterally. No wheezing or crackles. CVS: Regular rate and rhythm, S1 and S2 present, no murmurs or gallops appreciated. ABDOMEN: Soft, non-tender. No rebound no guarding, and no masses palpated. Bowel sounds are normal. The abd is distended above the umbilicus secondary to . EXTREMITIES: FROM in all major joints, no edema, no cyanosis or clubbing. NEURO: Alert and oriented x 3. No acute neurological deficits. Speech is normal and follows commands. SKIN: Dry and warm Triage Information Reviewed: Yes Vital Signs On Initial Exam: Initial Vitals Temp Pulse Resp BP Pulse Ox 98.0 F 93 20 114/71 100 05/14/17 17:01 05/14/17 17:01 05/14/17 17:01 05/14/17 17:01 05/14/17 17:01 Vital Signs Reviewed: Yes Diagnostics - Vital Signs Vital Signs Temp Pulse Resp BP Pulse Ox 05/14/17 17:01 98.0 F 93 20 114/71 100 - Laboratory Lab Results: Lab Results 05/14/17 05/14/17 05/14/17 Range/Units 17:02 17:02 17:02 WBC 9.9 (3.5-10.8) 10^3/ul RBC 4.14 (4.0-5.4) 10^6/ul Hgb 11.0 L (12.0-16.0) g/dl Hct 34 L (35-47) % MCV 81 (80-97) fL MCH 27 (27-31) pg MCHC 33 (31-36) g/dl RDW 14 (10.5-15) % Plt Count 195 (150-450) 10^3/ul MPV 9 (7.4-10.4) um3 Neut % (Auto) 83.0 (38-83) % Lymph % (Auto) 10.9 L (25-47) % Ripley % (Auto) 5.1 (1-9) % Eos % (Auto) 0.7 (0-6) % Baso % (Auto) 0.3 (0-2) % Absolute Neuts (auto) 8.2 H (1.5-7.7) 10^3/ul Absolute Lymphs (auto) 1.1 (1.0-4.8) 10^3/ul Absolute Monos (auto) 0.5 (0-0.8) 10^3/ul Absolute Eos (auto) 0.1 (0-0.6) 10^3/ul Absolute Basos (auto) 0 (0-0.2) 10^3/ul Absolute Nucleated RBC 0 10^3/ul Nucleated RBC % 0 Sodium 133 (133-145) mmol/L Potassium 3.3 L (3.5-5.0) mmol/L Chloride 102 (101-111) mmol/L Carbon Dioxide 25 (22-32) mmol/L Anion Gap 6 (2-11) mmol/L BUN 6 (6-24) mg/dL Creatinine 0.47 L (0.51-0.95) mg/dL Est GFR ( Amer) 201.5 (>60) Est GFR (Non-Af Amer) 156.7 (>60) BUN/Creatinine Ratio 12.8 (8-20) Glucose 88 (70-100) mg/dL Calcium 9.0 (8.6-10.3) mg/dL Total Bilirubin 0.50 (0.2-1.0) mg/dL AST 17 (13-39) U/L ALT 19 (7-52) U/L Alkaline Phosphatase 58 (34-104) U/L Total Protein 6.7 (6.4-8.9) g/dL Albumin 3.3 (3.2-5.2) g/dL Globulin 3.4 (2-4) g/dL Albumin/Globulin Ratio 1.0 (1-3) Beta HCG, Quant 67229.00 mIU/mL Urine Color Yellow Urine Appearance Cloudy Urine pH 6.0 (5-9) Ur Specific [place] 1.019 (1.010-1.030) Urine Protein 1+(30 mg/dl) H (Negative) Urine Ketones Negative (Negative) Urine Blood Negative (Negative) Urine Nitrate Negative (Negative) Urine Bilirubin Negative (Negative) Urine Urobilinogen Negative (Negative) Ur Leukocyte Esterase Negative (Negative) Urine WBC (Auto) Trace(0-5/hpf) (Absent) Urine RBC (Auto) Absent (Absent) Ur Squamous Epith Cells Present H (Absent) Urine Bacteria Absent (Absent) Urine Glucose Negative (Negative) Urine Ascorbic Acid * H (Negative) Blood Type Antibody Screen 05/14/17 Range/Units 17:02 WBC (3.5-10.8) 10^3/ul RBC (4.0-5.4) 10^6/ul Hgb (12.0-16.0) g/dl Hct (35-47) % MCV (80-97) fL MCH (27-31) pg MCHC (31-36) g/dl RDW (10.5-15) % Plt Count (150-450) 10^3/ul MPV (7.4-10.4) um3 Neut % (Auto) (38-83) % Lymph % (Auto) (25-47) % [place] % (Auto) (1-9) % Eos % (Auto) (0-6) % Baso % (Auto) (0-2) % Absolute Neuts (auto) (1.5-7.7) 10^3/ul Absolute Lymphs (auto) (1.0-4.8) 10^3/ul Absolute Monos (auto) (0-0.8) 10^3/ul Absolute Eos (auto) (0-0.6) 10^3/ul Absolute Basos (auto) (0-0.2) 10^3/ul Absolute Nucleated RBC 10^3/ul Nucleated RBC % Sodium (133-145) mmol/L Potassium (3.5-5.0) mmol/L Chloride (101-111) mmol/L Carbon Dioxide (22-32) mmol/L Anion Gap (2-11) mmol/L BUN (6-24) mg/dL Creatinine (0.51-0.95) mg/dL Est GFR ( Amer) (>60) Est GFR (Non-Af Amer) (>60) BUN/Creatinine Ratio (8-20) Glucose (70-100) mg/dL Calcium (8.6-10.3) mg/dL Total Bilirubin (0.2-1.0) mg/dL AST (13-39) U/L ALT (7-52) U/L Alkaline Phosphatase (34-104) U/L Total Protein (6.4-8.9) g/dL Albumin (3.2-5.2) g/dL Globulin (2-4) g/dL Albumin/Globulin Ratio (1-3) Beta HCG, Quant mIU/mL Urine Color Urine Appearance Urine pH (5-9) Ur Specific [place] (1.010-1.030) Urine Protein (Negative) Urine Ketones (Negative) Urine Blood (Negative) Urine Nitrate (Negative) Urine Bilirubin (Negative) Urine Urobilinogen (Negative) Ur Leukocyte Esterase (Negative) Urine WBC (Auto) (Absent) Urine RBC (Auto) (Absent) Ur Squamous Epith Cells (Absent) Urine Bacteria (Absent) Urine Glucose (Negative) Urine Ascorbic Acid (Negative) Blood Type B Positive Antibody Screen Negative Result Diagrams: 05/14/17 17:02 05/14/17 17:02 Lab Statement: Any lab studies that have been ordered have been reviewed, and results considered in the medical decision making process. 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 Pt reports that she was walking up a hill when she became weak and short of breath. Pt notes that she felt her heart beating fast and lost her hearing. She then "gracefully fell" to the ground on grass and had unwitnessed LOC. The time of LOC is unknown. Pt denies vaginal bleeding, vaginal discharge. She does endorse mild abd cramping. Pt notes she feels dizzy all the time secondary to her . Pt is followed up at [facility] with ObGy, Dr. Garrett Chopra. Test results are without any significant abnormalities except for hemoglobin of 11, hematocrit of 34, and potassium of 3.3. Urinalysis is negative for UTI. Pt is waiting for US of pelvis. The pt is hemodynamically stable and currently does not have any complaints. I believe her symptoms are secondary to dehydration. Therefore, the pt is being hydrated. The pt will be signed out to Dr. Toro, at shift change at 1900, for ultrasound reading and discussion of the case with pts ObGYN for further disposition. - Diagnoses Differential Diagnosis/HQI/PQRI: Positive: Dysrhythmia, Hyperventilation, Hypoglycemia, Vasovagal Episode Provider Diagnoses: Syncope Discharge - Discharge Plan Condition: Stable Disposition: OTHER Discharge Disposition Comment: signed out to Dr. Toro, pending dispo, awaiting pelvis US. Patient Education Materials: (ED), Syncope (ED) Referrals: Jj Funez MD [Primary Care Provider] - 3 Days The documentation as recorded by the David carlos Angela accurately reflects the service I personally performed and the decisions made by , Jj Arizmendi MD.
== END 2017-05-14 21:24 ==
LOC: ED 16:59
DX: O26.892 Other specified pregnancy related conditions, second trimester (principal); R55 Syncope and collapse; R00.2 Palpitations; R06.02 Shortness of breath; R10.9 Unspecified abdominal pain; Z3A.27 27 weeks gestation of pregnancy; F32.9 Major depressive disorder, single episode, unspecified; Z91.040 Latex allergy status
CPT/HCPCS: 36415; 76815; 80053; 81003; 81015; 84702; 85025; 86850; 86900; 86901; 93005; 96360; 96361; 99282; A9270-GY

== ENCOUNTER 2017-12-03 12:11 | Emergency (ER) | payer SELFPAY ==
--- OUTSIDE RECORDS SUMMARY | 2017-12-03 12:43 | XMS REPORT ---
:1985 External Reference #:[id number] Author Organization [facility] Address [address] [address] [place] [address] Phone [phone] Care Team Providers Name Role Phone Jj Funez III, MD Primary Care Physician Unavailable Payers Type Date Identification Numbers Payment Provider Subscriber Commercial Policy Number: [id number] Malcolm Lorrie Lucretia Dasilvabaileyamanda Group Number: [id number] [facility] [address]98 PayID: [id number] [place] [address] Workers Compensation Onset: 2016 Policy Number: Nca Comp Lorrie Lucretia [id number] Nishant Group Number: [id number] [facility] [address] Group Name: [id number] [place] [address] PayID: [id number] Workers Compensation PayID: [id number] Controverted Lorrie Dillard Problems Date Description Provider Status Onset: 04/07/2017 Lumbar radiculopathy Jj Funez M.D. Active Onset: 11/12/2016 Brachial neuritis Shadi Upton MD Active Onset: 11/12/2016 Injury of shoulder region Shadi Upton MD Active Onset: 11/12/2016 Sprain of shoulder and upper arm Shadi Upton MD Active Onset: 11/12/2016 Neck pain Shadi Upton MD Active Family History Date Family Member(s) Problem(s) Comments General Hypertension General Cancer Social History Type Date Description Comments Lives With Children Occupation Unemployed ETOH Use Denies alcohol use Smoking Patient has never smoked Recreational Drug Use Denies Drug Use Exercise Type/Frequency Does not exercise Allergies, Adverse Reactions, Alerts Date Description Reaction Status Severity Comments 10/06/2016 NKDA active 03/12/2017 Latex active Medications Medication Date Status Form Strength Qnty SIG Indications Ordering Provider Valium 11/02/ Active Tablets 5mg 2tabs take 1-2 Zaneb 2018 tabs 30 min Yasesaleem, prior to mri / Active Unknown Complete 0000 Iron (Ferrous / Active Tablets 256(28Fe) once daily Unknown Gluconate) 0000 mg Ibuprofen / Active Tablets 600mg three times Unknown 0000 a day Lidocaine 01/06/ Hx Patches 5% 30unit Not Using M54.2 Jj Murpyh 2017 - s At This Dee Dee, 04/06/ Time M.D. 2016 (never took secondary to insurance) Methocarbamol 11/06/ Hx Tablets 750mg 60tabs 1 po twice M54.5 Jj Murphy 2017 - a day as Dee Dee, 12/23/ needed M.D. 2017 Diazepam / Hx Tablets 5mg Sarmast, 0000 - Ottoniel, 2016 Ibuprofen / Hx Tablets 600mg Arizmendi, 0000 - Jj, 2016 Oxycodone-Aceta / Hx Tablets 5-325mg Arizmendi, minophen 0000 - Jj, 2016 Gabapentin / Hx Capsules 300mg 90caps 1 by mouth Jj Murphy - three times Dee Dee, 12/23/ a day M.D. 2016 Quetiapine / Hx Tablets 100mg Nygren, Fumarate - Tabitha, 2016 Foss / Hx Capsules 300mg Nygren, Carbonate 0000 - Tabitha, 2016 Tylenol Extra / Hx Tablets 500mg take 2 by Unknown Strength 0000 - mouth prn 08/12/ pain qday 2016 Zantac 150 / Hx Tablets 150mg 1 by mouth Unknown Maximum 0000 - twice a day Strength 2016 Medications Administered in Office Medication Date Status Form Strength Qnty SIG Indications Ordering Provider Depomedrol 40MG 07/19/ Administered Injection Francisca Mcfadden M.D. Depomedrol 40MG 07/19/ Administered Injection Francisca Mcfadden M.D. Triamcinolone 07/06/ Administered Injection Zaneb (Kenalog) 2016 MD Alexsandra Triamcinolone 02/11/ Administered Injection Zaneb (Kenalog) 2016 MD Alexsandra Vital Signs Date Vital Result Comment 11/17/2017 Weight 164.00 lb Heart Rate 82 /min BP Systolic Sitting 128 mmHg BP Diastolic Sitting 76 mmHg O2 % BldC Oximetry 98 % 10/21/2017 Height 63.5 inches 5'3.50" Weight 184.00 lb BP Systolic 120 mmHg BP Diastolic 78 mmHg Respiratory Rate 18 /min Pain Level 7 BMI (Body Mass Index) 32.1 kg/m2 09/30/2017 Weight 168.25 lb Heart Rate 73 /min BP Systolic Sitting 122 mmHg BP Diastolic Sitting 70 mmHg O2 % BldC Oximetry 98 % 09/16/2017 Height 63.5 inches 5'3.50" Weight 184.00 lb Heart Rate 76 /min Respiratory Rate 16 /min Body Temperature 97.4 F Pain Level 0 Peak Flow Meter . BMI (Body Mass Index) 32.1 kg/m2 09/07/2017 Height 63.5 inches 5'3.50" Weight 184.00 lb BP Systolic 118 mmHg BP Diastolic 74 mmHg Respiratory Rate 18 /min Pain Level 0 BMI (Body Mass Index) 32.1 kg/m2 08/13/2017 Weight 179.00 lb Heart Rate 97 /min BP Systolic Sitting 105 mmHg BP Diastolic Sitting 75 mmHg Body Temperature 98.6 F Pain Level 8 lower back herniated disc O2 % BldC Oximetry 98 % 07/19/2017 Height 63.5 inches 5'3.50" Weight 184.00 lb BP Systolic 110 mmHg BP Diastolic 74 mmHg Body Temperature 97.2 F Pain Level 8 BMI (Body Mass Index) 32.1 kg/m2 07/06/2017 Height 63.5 inches 5'3.50" Weight 184.00 lb Heart Rate 111 /min BP Systolic Sitting 110 mmHg BP Diastolic Sitting 80 mmHg Body Temperature 97.6 F O2 % BldC Oximetry 98 % BMI (Body Mass Index) 32.1 kg/m2 07/06/2017 Height 63.5 inches 5'3.50" Weight 178.00 lb Heart Rate 72 /min BP Systolic 110 mmHg BP Diastolic 66 mmHg Body Temperature 96.8 F Pain Level 6 BMI (Body Mass Index) 31.0 kg/m2 06/08/2017 Height 63.5 inches 5'3.50" Weight 178.00 lb Heart Rate 91 /min BP Systolic Sitting 107 mmHg BP Diastolic Sitting 67 mmHg Body Temperature 96.6 F O2 % BldC Oximetry 99 % BMI (Body Mass Index) 31.0 kg/m2 06/04/2017 Height 63.5 inches 5'3.50" Weight 179.00 lb Heart Rate 64 /min BP Systolic Sitting 110 mmHg BP Diastolic Sitting 62 mmHg Respiratory Rate 16 /min BMI (Body Mass Index) 31.2 kg/m2 05/19/2017 Height 63.5 inches 5'3.50" Weight 175.00 lb Heart Rate 103 /min BP Systolic Sitting 104 mmHg BP Diastolic Sitting 70 mmHg Body Temperature 97.1 F O2 % BldC Oximetry 98 % BMI (Body Mass Index) 30.5 kg/m2 05/04/2017 Height 63.5 inches 5'3.50" Weight 168.00 lb BP Systolic 110 mmHg BP Diastolic 68 mmHg Respiratory Rate 18 /min Pain Level 4 BMI (Body Mass Index) 29.3 kg/m2 04/07/2017 Weight 170.00 lb Heart Rate 111 /min BP Systolic Standing 140 mmHg BP Diastolic Standing 70 mmHg Body Temperature 98.2 F O2 % BldC Oximetry 98 % 03/12/2017 Height 63.5 inches 5'3.50" Weight 156.00 lb Heart Rate 88 /min BP Systolic Sitting 96 mmHg BP Diastolic Sitting 64 mmHg Respiratory Rate 14 /min BMI (Body Mass Index) 27.2 kg/m2 02/17/2017 Height 63.5 inches 5'3.50" Weight 167.50 lb Heart Rate 75 /min BP Systolic 120 mmHg BP Diastolic 60 mmHg Body Temperature 97.3 F O2 % BldC Oximetry 98 % BMI (Body Mass Index) 29.2 kg/m2 02/11/2017 Height 63.5 inches 5'3.50" Weight 168.00 lb Heart Rate 87 /min BP Systolic 117 mmHg BP Diastolic 82 mmHg Body Temperature 97.3 F Pain Level 7 BMI (Body Mass Index) 29.3 kg/m2 01/06/2017 Weight 166.00 lb Heart Rate 94 /min BP Systolic Sitting 102 mmHg BP Diastolic Sitting 70 mmHg Respiratory Rate 15 /min O2 % BldC Oximetry 98 % 12/24/2016 Height 63.5 inches 5'3.50" Weight 163.00 lb Heart Rate 68 /min BP Systolic 118 mmHg BP Diastolic 70 mmHg Respiratory Rate 12 /min Pain Level 6 BMI (Body Mass Index) 28.4 kg/m2 11/12/2016 Height 63.5 inches 5'3.50" Weight 163.00 lb Heart Rate 89 /min BP Systolic 117 mmHg BP Diastolic 72 mmHg Body Temperature 96.6 F Pain Level 8 BMI (Body Mass Index) 28.4 kg/m2 11/06/2016 Weight 166.00 lb Heart Rate 84 /min BP Systolic Sitting 118 mmHg BP Diastolic Sitting 72 mmHg Respiratory Rate 16 /min O2 % BldC Oximetry 99 % 10/06/2016 Weight 165.00 lb Heart Rate 96 /min BP Systolic Sitting 128 mmHg BP Diastolic Sitting 76 mmHg Respiratory Rate 15 /min Body Temperature 98.0 F O2 % BldC Oximetry 98 % Results Test Date Test Result H/L Range Note Laboratory test finding 09/30/2017 C Reactive Protein 1.91 mg/L < 5.00 1 Erythrocyte Sed Rate 11 mm/Hr 0-14 CBC Auto Diff 09/30/2017 White Blood Count 6.4 10^3/uL 3.5-10.8 Red Blood Count 5.28 10^6/uL 4.0-5.4 Hemoglobin 13.1 g/dL 12.0-16.0 Hematocrit 41 % 35-47 Mean Corpuscular Volume 79 fL Low 80-97 Mean Corpuscular Hemoglobin 25 pg Low 27-31 Mean Corpuscular HGB Conc 32 g/dL 31-36 Red Cell Distribution Width 16 % High 10.5-15 Platelet Count 215 10^3/uL 150-450 Mean Platelet Volume 10 um3 7.4-10.4 Abs Neutrophils 4.2 10^3/uL 1.5-7.7 Abs Lymphocytes 1.7 10^3/uL 1.0-4.8 Abs Monocytes 0.3 10^3/uL 0-0.8 Abs Eosinophils 0.2 10^3/uL 0-0.6 Abs Basophils 0 10^3/uL 0-0.2 Abs Nucleated RBC 0 10^3/uL Granulocyte % 65.8 % 38-83 Lymphocyte % 26.0 % 25-47 Monocyte % 4.6 % 1-9 Eosinophil % 3.3 % 0-6 Basophil % 0.3 % 0-2 Nucleated Red Blood Cells % 0 Vitamin B12 And Folate Serum 09/30/2017 Vitamin B12 456 pg/mL 180-914 2 Folic Acid (Folate) > 20.00 ng/mL >3.99 Laboratory test finding 09/30/2017 Lyme Disease Serology Negative Negative 3 Inr/Protime 08/08/2017 Inr 0.80 0.77-1.02 4 Laboratory test finding 08/08/2017 Partial Thrombo Time 24.2 seconds Low 26.0-36.3 PTT Laboratory test finding 08/08/2017 C Reactive Protein 72.47 mg/L High &lt ; 5.00 5 Lactic Acid 0.8 mmol/L 0.5-2.0 6 Comp Metabolic Panel 08/08/2017 Sodium 136 mmol/L 133-145 Potassium 3.5 mmol/L 3.5-5.0 Chloride 105 mmol/L 101-111 Co2 Carbon Dioxide 25 mmol/L 22-32 Anion Gap 6 mmol/L 2-11 Glucose 93 mg/dL 70-100 Blood Urea Nitrogen 11 mg/dL 6-24 Creatinine 0.64 mg/dL 0.51-0.95 BUN/Creatinine Ratio 17.2 8-20 Calcium 8.9 mg/dL 8.6-10.3 Total Protein 6.7 g/dL 6.4-8.9 Albumin 3.3 g/dL 3.2-5.2 Globulin 3.4 g/dL 2-4 Albumin/Globulin Ratio 1.0 1-3 Total Bilirubin 0.80 mg/dL 0.2-1.0 Alkaline Phosphatase 120 U/L High 34-104 Alt 105 U/L High 7-52 Ast 85 U/L High 13-39 Egfr Non- 109.7 >60 Egfr 141.1 >60 7 CBC Auto Diff 08/08/2017 White Blood Count 10.6 10^3/uL 3.5-10.8 Red Blood Count 5.22 10^6/uL 4.0-5.4 Hemoglobin 13.6 g/dL 12.0-16.0 Hematocrit 42 % 35-47 Mean Corpuscular Volume 80 fL 80-97 Mean Corpuscular Hemoglobin 26 pg Low 27-31 Mean Corpuscular HGB Conc 33 g/dL 31-36 Red Cell Distribution Width 15 % 10.5-15 Platelet Count 216 10^3/uL 150-450 Mean Platelet Volume 9 um3 7.4-10.4 Abs Neutrophils 8.4 10^3/uL High 1.5-7.7 Abs Lymphocytes 1.5 10^3/uL 1.0-4.8 Abs Monocytes 0.3 10^3/uL 0-0.8 Abs Eosinophils 0.4 10^3/uL 0-0.6 Abs Basophils 0 10^3/uL 0-0.2 Abs Nucleated RBC 0.01 10^3/uL Granulocyte % 79.5 % 38-83 Lymphocyte % 13.9 % Low 25-47 Monocyte % 2.8 % 1-9 Eosinophil % 3.4 % 0-6 Basophil % 0.4 % 0-2 Nucleated Red Blood Cells % 0.1 Urinalysis Profile 03/04/2017 Urine Color Yellow Urine Appearance Clear Urine Specific [place] 1.024 1.010-1.030 Urine pH 5.0 5-9 Urine Urobilinogen Negative Negative Urine Ketones Negative Negative Urine Protein Negative Negative Urine Leukocytes Negative Negative Urine Blood Negative Negative Urine Nitrite Negative Negative Urine Bilirubin Negative Negative Urine Glucose Negative Negative Basic Metabolic Panel 03/04/2017 Sodium 133 mmol/L 133-145 Potassium 3.5 mmol/L 3.5-5.0 Chloride 105 mmol/L 101-111 Co2 Carbon Dioxide 20 mmol/L Low 22-32 Anion Gap 8 mmol/L 2-11 Glucose 93 mg/dL 70-100 Blood Urea Nitrogen 8 mg/dL 6-24 Creatinine 0.54 mg/dL 0.51-0.95 BUN/Creatinine Ratio 14.8 8-20 Calcium 9.6 mg/dL 8.6-10.3 Egfr Non- 133.5 >60 Egfr 171.7 >60 8 Laboratory test finding 03/04/2017 HCG 18624.00 mIU/mL 9 CBC No Diff 03/04/2017 White Blood Count 10.6 10^3/uL 3.5-10.8 Red Blood Count 4.53 10^6/uL 4.0-5.4 Hemoglobin 12.2 g/dL 12.0-16.0 Hematocrit 38 % 35-47 Mean Corpuscular Volume 84 fL 80-97 Mean Corpuscular Hemoglobin 27 pg 27-31 Mean Corpuscular HGB Conc 32 g/dL 31-36 Red Cell Distribution Width 16 % High 10.5-15 Platelet Count 224 10^3/uL 150-450 Mean Platelet Volume 9 um3 7.4-10.4 Laboratory test finding 02/19/2017 C Reactive Protein 7.33 mg/L High < 5.00 10, 11 Erythrocyte Sed Rate 32 mm/Hr High 0-14 10, 12 Magnesium 2.1 mg/dL 1.9-2.7 10, 13 Basic Metabolic Panel 02/19/2017 Sodium 134 mmol/L 133-145 10 Potassium 3.9 mmol/L 3.5-5.0 10 Chloride 102 mmol/L 101-111 10 Co2 Carbon Dioxide 27 mmol/L 22-32 10 Anion Gap 5 mmol/L 2-11 10 Glucose 87 mg/dL 70-100 10 Blood Urea Nitrogen 10 mg/dL 6-24 10 Creatinine 0.55 mg/dL 0.51-0.95 10 BUN/Creatinine Ratio 18.2 8-20 10 Calcium 9.5 mg/dL 8.6-10.3 10 Egfr Non- 130.7 >60 10 Egfr 168.1 >60 10, 14 Xray 01/25/2017 MRI Cervical Spine Wo <pending> MRI Lumbar Spine W/O <pending> 1 Acute inflammation: >10.00 2 Normal Range 180 to 914 Indeterminate Range 145 to 180 Deficient Range <145 3 Serologic response to B. burgdorferi infection is not detected, but cannot rule out early infection during which low or undetectable antibody levels to B. burgdorferi may be present. If clinically indicated, a new serum specimen should be submitted in 7-14 days. Test Performed by: [facility] [address] [place] [address] 4 Please note the change in INR reference range effective 17. 5 Acute inflammation: >10.00 6 [facility] Severe Sepsis and Septic Shock Management Bundle Measure requires all lactic acids initially measuring >2.0 mmol/L be repeated. 7 Because ethnic data is not always readily available, this report includes an eGFR for both -Americans and non- Americans. The National Kidney Disease Education Program (NKDEP) does not endorse the use of the MDRD equation for patients that are not between the ages of 18 and 70, are , have extremes of body size, muscle mass, or nutritional status, or are non- or non-. According to the National Kidney Foundation, irrespective of diagnosis, the stage of the disease is based on the level of kidney function: Stage Description GFR(mL/min/1.73 m(2)) 1 Kidney damage with normal or decreased GFR 90 2 Kidney damage with mild decrease in GFR 60-89 3 Moderate decrease in GFR 30-59 4 Severe decrease in GFR 15-29 5 Kidney failure <15 (or dialysis) 8 Because ethnic data is not always readily available, this report includes an eGFR for both -Americans and non- Americans. The National Kidney Disease Education Program (NKDEP) does not endorse the use of the MDRD equation for patients that are not between the ages of 18 and 70, are , have extremes of body size, muscle mass, or nutritional status, or are non- or non-. According to the National Kidney Foundation, irrespective of diagnosis, the stage of the disease is based on the level of kidney function: Stage Description GFR(mL/min/1.73 m(2)) 1 Kidney damage with normal or decreased GFR 90 2 Kidney damage with mild decrease in GFR 60-89 3 Moderate decrease in GFR 30-59 4 Severe decrease in GFR 15-29 5 Kidney failure <15 (or dialysis) 9 <5.0 Negative 5.0 - 25.0 Indeterminate (Repeat testing recommended after 72 hours) >25.0 Positive Perimenopausal women can display HCG levels of up to 20 mIU/mL 10 [id number] 11 Acute inflammation: >10.00 12 [id number] 14 Because ethnic data is not always readily available, this report includes an eGFR for both -Americans and non- Americans. The National Kidney Disease Education Program (NKDEP) does not endorse the use of the MDRD equation for patients that are not between the ages of 18 and 70, are , have extremes of body size, muscle mass, or nutritional status, or are non- or non-. According to the National Kidney Foundation, irrespective of diagnosis, the stage of the disease is based on the level of kidney function: Stage Description GFR(mL/min/1.73 m(2)) 1 Kidney damage with normal or decreased GFR 90 2 Kidney damage with mild decrease in GFR 60-89 3 Moderate decrease in GFR 30-59 4 Severe decrease in GFR 15-29 5 Kidney failure <15 (or dialysis) Procedures Date CPT Code Description Status 07/19/2017 Injection, Carpal Tunnel Completed 07/19/2017 Injection, Carpal Tunnel Completed 07/19/2017 Injection, Carpal Tunnel Completed 07/06/2017 Inject/Drain Joint/Bursa Major Completed 06/04/2017 84496 Nerve Conduction, Sensory Completed 06/04/2017 75174 Nerve Conduction, Motor W/F-Wave Study Completed 06/04/2017 05773 Nerve Conduction, Motor W/O F-Wave Study Completed 06/04/2017 72203 Needle Electromyography Complete, Five Or More Muscles Completed Studied 06/02/2017 74500 Holter Monitor Review (24 hr)dr puentes & lynn Completed only 06/02/2017 03095 ECG Monitor/Recording W/Visual Superimposition Scanning Completed 06/01/2017 44157 ECG Monitor/Recording W/Visual Superimposition Scanning Completed 06/01/2017 05914 ECG Monitor/Recording W/Visual Superimposition Scanning Completed 05/28/2017 85801 ECHO Transthoracic, Real-Time 2D With Doppler And Color Completed Flow 05/28/2017 36454 ECHO Transthoracic, Real-Time 2D With Doppler And Color Completed Flow 02/11/2017 17003 Inject/Drain Joint/Bursa Major Completed Encounters Type Date Location Provider CPT E/M Dx Office Visit 10/21/2017 11:00a [facility] [place] [address] M25.561 [facility] M25.562 M76.52 M17.12 M17.11 M22.2x1 M22.2x2 Office Visit 09/30/2017 9:00a [facility] Jj Funez 14712 M79.601 - Robert Gardner M79.602 M54.5 Office Visit 09/16/2017 10:45a [facility] Marlene Raya 81886 M54.12 Of [facility].Lian RPA-C Office Visit 09/07/2017 10:45a [place] [address] S46.011A Of [facility].Lian S46.101A S46.011A S46.011D Office Visit 08/13/2017 11:40a [facility] - Jj Funez, 19897 R51 Robert Gardner M54.5 Office Visit 08/09/2017 8:28a [facility] Elicia PowersorquideamohitSelinMckeon, 24396 R74.0 Assoc,pc [employer] Hospitalists O90.89 G97.1 Office Visit 08/08/2017 8:27a [facility] Assoc,pc Sharon Buck, [employer] 80880 G97.1 Hospitalists R74.0 O90.89 Office Visit 07/19/2017 10:30a [facility] Francisca Mcfadden, 58264 G56.03 Of Daniel Gardner G56.22 G56.21 G56.22 G56.03 Office Visit 07/06/2017 11:40a [facility] Jj Funez, 70302 M79.643 - Robert Gardner Office Visit 07/06/2017 10:15a [facility] [place] [address] M54.2 C.M.AJohnny S46.011A S46.101A S46.011D R20.0 Office Visit 06/08/2017 2:20p [facility] - Jj Funez, 41877 R55 Robert Gardner Office Visit 05/19/2017 2:40p [facility] - Jj Funez, 27232 R55 Robert Gardner Office Visit 05/04/2017 2:15p [facility] [place] [address] M54.2 C.M.AJohnny M54.16 S46.011A S46.101A S46.011D Office Visit 04/07/2017 3:50p [facility] Jj Funez, 40487 M54.2 - Robert Gardner M54.16 Office Visit 04/07/2017 3:40p [facility] Jj Funez, 64350 G43.109 - Robert Gardner Z33.1 M54.5 M54.2 Office Visit 03/12/2017 10:00a [facility] Myranda Marshall M.D. 62251 G43.109 Services Of [facility] Z33.1 M54.16 G43.109 Z33.1 M54.16 Office Visit 02/17/2017 4:00p [facility] Jj Funez, 36755 M54.5 - Robert Gardner M54.2 Office Visit 02/17/2017 3:40p [facility] - Jj Funez, 66886 R51 Robert Gardner Office Visit 02/11/2017 1:15p [facility] [place] [address] M54.2 C.M.A. S46.011A S46.101A M54.12 S46.011D M54.12 Office Visit 01/06/2017 11:40a [facility] Jj Funez, 46309 M54.2 - Robert Gardner R51 Office Visit 12/24/2016 10:00a [facility] [place] [address] M54.2 C.M.A. S46.011A S46.101A M54.12 Office Visit 11/12/2016 2:00p [facility] [place] [address] M54.2 C.[facility].A. M54.2 S46.011A S46.011A S46.101A S46.101A M54.12 S46.011A Office Visit 11/06/2016 11:40a [facility] Jj Funez, 49480 M54.2 - Robert Gardner M54.5 M25.511 F34.1 Plan of Care Future Appointment(s):12/02/2017 10:30 am - Shadi Upton MD at [facility]11/22/2017 9:30 am - Dusty Kwon M.D. at [place] [facility]10/21/2017 - Shadi Upton, MDM25.561 Pain in right kneeNew Therapy:Physical TherapyFollow up:Follow up: after MRIM25.562 Pain in left kneeM76.52 Patellar tendinitis, left kneeNew Therapy:Physical WaxizwtB42.12 Unilateral primary osteoarthritis, left kneeNew Therapy:Physical CyxhamzP00.11 Unilateral primary osteoarthritis, right kneeM22.2x1 Patellofemoral disorders, right kneeNew Xrays:MRI Knee Right W/OM22.2x2 Patellofemoral disorders, left knee
--- NOTE | 2017-12-03 15:01 | RAD ---
INDICATION: Head injury. COMPARISON: Comparison is made with a prior MRI of the brain from February 18, 2015. TECHNIQUE: Contiguous axial sections of the brain were obtained from the skull base to the vertex without contrast. FINDINGS: The ventricles, cisterns and sulci are within normal limits. No significant focal abnormality or mass effect is seen. There is no evidence for hemorrhage. No significant focal osseous abnormality is seen. The visualized portion of the paranasal sinuses and mastoid air cells appear clear. IMPRESSION: NO EVIDENCE FOR ACUTE INTRACRANIAL ABNORMALITY.
--- NOTE | 2017-12-03 15:06 | RAD ---
INDICATION: Facial trauma. COMPARISON: There are no prior studies available for comparison. TECHNIQUE: Contiguous axial sections of the axial images of the facial bones were obtained and reconstructed in the coronal and sagittal planes. FINDINGS: Soft tissue swelling is noted anterior to the frontal sinuses. The pope of the orbits and maxillary sinuses appear intact. The zygomatic arches appear intact. There is no evidence for a fracture of the mandible. The nasal bones appear intact. There is mild S-shaped deviation of the nasal septum convex toward the right along its superior portion and toward the left along its posterior portion. The pterygoid plates appear intact. The paranasal sinuses appear clear. IMPRESSION: NO EVIDENCE OF FRACTURE.
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
[2017-12-03 15:34] VITALS: BP 112/74
== END 2017-12-03 15:33 | disposition home or self-care (01) ==
LOC: ED 12:11
DX: S09.93XA Unspecified injury of face, initial encounter (principal); S09.90XA Unspecified injury of head, initial encounter; W20.8XXA Other cause of strike by thrown, projected or falling object, initial encounter; Y92.9 Unspecified place or not applicable
CPT/HCPCS: 70450; 70486; 99282

== ENCOUNTER 2017-12-16 20:36 | Emergency (ER) | payer SELFPAY ==
--- OUTSIDE RECORDS SUMMARY | 2017-12-16 20:57 | XMS REPORT ---
:1985 External Reference #:[id number] Author Organization [facility] Address [address] [place] [address] Phone [phone] Care Team Providers Name Role Phone Jj Funez III, MD Primary Care Physician Unavailable Payers Type Date Identification Numbers Payment Provider Subscriber Commercial Policy Number: [id number] Malcolm Lorrie Lucretia Saucedoisaiahamanda Group Number: [id number] [facility] [address] PayID: [id number] [place] [address] Workers Compensation Onset: 2016 Policy Number: Nca Comp Lorrie Lucretia [id number] Nishant Group Number: [id number] [facility] [address] Group Name: [phone] [place] [address] PayID: [id number] Workers Compensation PayID: [id number] Controverted Lorrie Dillard Problems Date Description [...] Member(s) Problem(s) Comments General Hypertension General Cancer General Stroke Social History Type Date Description Comments Lives With Children Occupation Assisted Living Associate ETOH Use Denies alcohol use Smoking Patient has never smoked Recreational Drug Use Denies Drug Use Exercise Type/Frequency Does not exercise Exercise Type/Frequency Exercises regularly 3-4 times a week pt walks Allergies, Adverse Reactions, Alerts Date Description Reaction Status Severity Comments 10/06/2016 NKDA active 03/12/2017 Latex active Medications Medication Date Status Form Strength Qnty SIG Indications Ordering Provider / Active 1 tab po qd Unknown Complete 0000 Iron (Ferrous / Active Tablets 256(28Fe) once daily Unknown Gluconate) 0000 mg Ibuprofen / Active Tablets 800mg three times Unknown 0000 a day Valium 11/02/ Hx Tablets 5mg 2tabs take 1-2 Jj Murphy 2018 - tabs 10-15 Dee Dee, 12/09/ min prior M.D. 2017 to mri Lidocaine 01/06/ Hx Patches 5% 30unit Not Using M54.2 Jj Murphy 2017 - s At This Dee Dee, 04/06/ Time M.D. 2016 (never took secondary to insurance) Methocarbamol 11/06/ Hx Tablets 750mg 60tabs 1 po twice M54.5 Jj Murphy 2017 - a day as Dee Dee 12/23/ needed M.D. 2017 Diazepam 00/ Hx Tablets 5mg Sarmast, 0000 - Ottoniel, 2016 Ibuprofen / Hx Tablets 600mg Arizmendi, 0000 - Jj, 2016 Oxycodone-Aceta / Hx Tablets 5-325mg Arizmendi, minophen - Jj, 2016 Gabapentin / Hx Capsules 300mg 90caps 1 by mouth Jj Murphy - three times Dee Dee, 12/23/ a day M.D. 2016 Quetiapine /00/ Hx Tablets 100mg Nygren, Fumarate 0000 - Tabitha, 2016 Kevil 00/ Hx Capsules 300mg Nygren, Carbonate 0000 - Tabitha, 2016 Tylenol Extra / Hx Tablets 500mg take 2 by Unknown Strength 0000 - mouth prn 08/12/ pain qday 2016 Zantac 150 00/ Hx Tablets 150mg 1 by mouth Unknown Maximum 0000 - twice a day Strength 2016 Medications Administered in Office Medication Date Status Form Strength Qnty SIG Indications Ordering Provider Depomedrol 40MG 07/19/ Administered Injection Francisca Mcfadden M.D. Depomedrol 40MG 07/19/ Administered Injection Francisca 2016 Kendra Mcfadden Triamcinolone 07/06/ Administered Injection Zaneb (Kenalog) 2016 MD Alexsandra Triamcinolone 02/11/ Administered Injection Zaneb (Kenalog) 2016 MD Alexsandra Vital Signs Date Vital Result Comment 12/10/2017 Height 63.5 inches 5'3.50" Weight 165.00 lb Heart Rate 88 /min BP Systolic Sitting 102 mmHg BP Diastolic Sitting 80 mmHg Respiratory Rate 16 /min BMI (Body Mass Index) 28.8 kg/m2 11/22/2017 Height 63.5 inches 5'3.50" Weight 164.00 lb Heart Rate 84 /min BP Systolic 100 mmHg BP Diastolic 67 mmHg Respiratory Rate 14 /min BMI (Body Mass Index) 28.6 kg/m2 11/17/2017 Weight 164.00 lb Heart Rate 82 [...] Thrombo Time 24.2 seconds Low 26.0-36.3 PTT CBC Auto Diff 08/08/2017 White Blood Count [...] 0-2 Nucleated Red Blood Cells % 0.1 Comp Metabolic Panel 08/08/2017 Sodium 136 mmol/L [...] Egfr Non- 109.7 >60 Egfr 141.1 >60 5 Laboratory test finding 08/08/2017 C Reactive Protein 72.47 mg/L High &lt ; 5.00 6 Lactic Acid 0.8 mmol/L 0.5-2.0 7 CBC No Diff 03/04/2017 White Blood Count 10.6 10^3/uL 3.5-10.8 Red Blood Count 4.53 10^6/uL 4.0-5.4 Hemoglobin 12.2 g/dL 12.0-16.0 Hematocrit 38 % 35-47 Mean Corpuscular Volume 84 fL 80-97 Mean Corpuscular Hemoglobin 27 pg 27-31 Mean Corpuscular HGB Conc 32 g/dL 31-36 Red Cell Distribution Width 16 % High 10.5-15 Platelet Count 224 10^3/uL 150-450 Mean Platelet Volume 9 um3 7.4-10.4 Urinalysis Profile 03/04/2017 Urine Color Yellow Urine Appearance Clear Urine Specific Adams 1.024 1.010-1.030 Urine pH 5.0 5-9 Urine Urobilinogen Negative Negative Urine Ketones Negative Negative Urine Protein Negative Negative Urine Leukocytes Negative Negative Urine Blood Negative Negative Urine Nitrite Negative Negative Urine Bilirubin Negative Negative Urine Glucose Negative Negative Laboratory test finding 03/04/2017 HCG 34018.00 mIU/mL 8 Basic Metabolic Panel 03/04/2017 Sodium 133 mmol/L 133-145 Potassium 3.5 mmol/L 3.5-5.0 Chloride 105 mmol/L 101-111 Co2 Carbon Dioxide 20 mmol/L Low 22-32 Anion Gap 8 mmol/L 2-11 Glucose 93 mg/dL 70-100 Blood Urea Nitrogen 8 mg/dL 6-24 Creatinine 0.54 mg/dL 0.51-0.95 BUN/Creatinine Ratio 14.8 8-20 Calcium 9.6 mg/dL 8.6-10.3 Egfr Non- 133.5 >60 Egfr 171.7 >60 9 Basic Metabolic Panel 02/19/2017 Sodium 134 mmol/L [...] 130.7 >60 10 Egfr 168.1 >60 10, 11 Laboratory test finding 02/19/2017 C Reactive Protein 7.33 mg/L High < 5.00 10, 12 Erythrocyte Sed Rate 32 mm/Hr High 0-14 10, 13 Magnesium 2.1 mg/dL 1.9-2.7 10, 14 Xray 01/25/2017 MRI Cervical Spine [...] submitted in 7-14 days. Test Performed by: [facility] [address] [place] [address] 4 Please note the change in INR reference range effective 17. 5 Because ethnic data is not always readily [...] 15-29 5 Kidney failure <15 (or dialysis) 6 Acute inflammation: >10.00 7 [facility] Severe Sepsis and Septic Shock Management Bundle Measure requires all lactic acids initially measuring >2.0 mmol/L be repeated. 8 <5.0 Negative 5.0 - 25.0 Indeterminate (Repeat testing recommended after 72 hours) >25.0 Positive Perimenopausal women can display HCG levels of up to 20 mIU/mL 9 Because ethnic data is not always readily [...] 15-29 5 Kidney failure <15 (or dialysis) 10 [id number] 11 Because ethnic data is not always readily [...] 15-29 5 Kidney failure <15 (or dialysis) 12 Acute inflammation: >10.00 13 [id number] Procedures Date CPT Code Description Status 07/19/2017 Injection, Carpal Tunnel Completed 07/19/2017 Injection, Carpal Tunnel Completed 07/19/2017 Injection, Carpal Tunnel Completed 07/06/2017 Inject/Drain Joint/Bursa Major Completed 06/04/2017 55879 Nerve Conduction, Sensory Completed 06/04/2017 62046 Nerve Conduction, Motor W/F-Wave Study Completed 06/04/2017 40984 Nerve Conduction, Motor W/O F-Wave Study Completed 06/04/2017 11494 Needle Electromyography Complete, Five Or More Muscles Completed Studied 06/02/2017 55734 Holter Monitor Review (24 hr)dr puentes & lynn Completed only 06/02/2017 00329 ECG Monitor/Recording W/Visual Superimposition Scanning Completed 06/01/2017 10478 ECG Monitor/Recording W/Visual Superimposition Scanning Completed 06/01/2017 78506 ECG Monitor/Recording W/Visual Superimposition Scanning Completed 05/28/2017 77913 ECHO Transthoracic, Real-Time 2D With Doppler And Color Completed Flow 05/28/2017 84587 ECHO Transthoracic, Real-Time 2D With Doppler And Color Completed Flow 02/11/201763227 Inject/Drain Joint/Bursa Major Completed Encounters Type Date Location Provider CPT E/M Dx Office Visit 12/10/2017 [facility] Myranda Marshall M.D. 00894 M54.2 3:00p [facility] R20.2 Office Visit 11/17/2017 11:40a [facility] Jj Funez, 44993 M54.5 - Robert Gardner Office Visit 10/21/2017 11:00a [facility] [place] [address] M25.561 C.MMi M25.562 M76.52 M17.12 M17.11 M22.2x1 M22.2x2 Office Visit 09/30/2017 9:00a [facility] Jj Funez, 64332 M79.601 - Robert Gardner M79.602 M54.5 Office Visit 09/16/2017 10:45a [facility] Marlene Elver, 19174 M54.12 Of C.MMi RPA-C Office Visit 09/07/2017 10:45a [place] [address] S46.011A Of C.M.Lian S46.101A S46.011A S46.011D Office Visit 08/13/2017 11:40a [facility] - Jj Funez, 73402 R51 Robert Gardner M54.5 Office Visit 08/09/2017 8:28a [facility] Elicia Arias, 06746 R74.0 Assoc, OFFICE AIDE Hospitalists O90.89 G97.1 Office Visit 08/08/2017 8:27a [facility] Assoc,pc Sharon Buck, GARRET 03513 G97.1 Hospitalists R74.0 O90.89 Office Visit 07/19/2017 10:30a [facility] Francisca Mcfadden, 35891 G56.03 Of Daniel Gardner G56.22 G56.21 G56.22 G56.03 Office Visit 07/06/2017 11:40a [facility] Jj Funez, 06788 M79.643 - Robert Gardner Office Visit 07/06/2017 10:15a [facility] [place] [address] M54.2 C.M.AJohnny S46.011A S46.101A S46.011D R20.0 Office Visit 06/08/2017 2:20p [facility] - Jj Funez, 89609 R55 Robert Gardner Office Visit 05/19/2017 2:40p [facility] - Jj Funez, 61409 R55 Robert Gardner Office Visit 05/04/2017 2:15p [facility] [place] [address] M54.2 C.M.A. M54.16 S46.011A S46.101A S46.011D Office Visit 04/07/2017 3:50p [facility] Jj Funez, 97159 M54.2 - Robert Gardner M54.16 Office Visit 04/07/2017 3:40p [facility] Jj Funez, 25018 G43.109 - Robert Gardner Z33.1 M54.5 M54.2 Office Visit 03/12/2017 10:00a [facility] Myranda Marshall M.D. 71112 G43.109 [facility] Z33.1 M54.16 G43.109 Z33.1 M54.16 Office Visit 02/17/2017 4:00p [facility] Jj Funez, 02566 M54.5 - Robert Gardner M54.2 Office Visit 02/17/2017 3:40p [facility] - Jj Funez, 57664 R51 Robert Gardner Office Visit 02/11/2017 1:15p [facility] [place] [address] M54.2 C.M.A. S46.011A S46.101A M54.12 S46.011D M54.12 Office Visit 01/06/2017 11:40a [facility] Jj Funez, 58671 M54.2 - Robert Gardner R51 Office Visit 12/24/2016 10:00a [facility] [place] [address] M54.2 C.M.A. S46.011A S46.101A M54.12 Office Visit 11/12/2016 2:00p [facility] [place] [address] M54.2 C.M.A. M54.2 S46.011A S46.011A S46.101A S46.101A M54.12 S46.011A Office Visit 11/06/2016 11:40a [facility] Jj Funez, 22888 M54.2 - Robert Gardner M54.5 M25.511 F34.1 Plan of Care Future Appointment(s):01/27/2018 9:30 am - Myranda Marshall M.D. at [facility]12/14/2017 11:00 am - Shadi Upton MD at [facility].M.A.12/10/2017 - Myranda Marshall M.D.M54.2 CervicalgiaNew Xrays: MRI Cervical Spine WoFollow up:after MRI and emg/ncsR20.2 Paresthesia of skinNew Xrays:MRI Cervical Spine WoNew Orders:EMG w/Nerve Conduct Study, Upper
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
[2017-12-16] MEDS ORDERED: Ibuprofen TAB* 400 MG PO ONE (22:53)
[2017-12-16] MEDS ORDERED: diPHENhydraMINE PO* 50 MG PO ONE (22:53)
[2017-12-16] MEDS ORDERED: Promethazine TAB* 25 MG PO ONE (22:53)
[2017-12-17 01:02] VITALS: BP 138/74
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
--- NOTE | 2017-12-17 07:44 | RAD ---
CLINICAL HISTORY: Facial pain COMPARISON: CT dated December 03, 2017 TECHNIQUE: Contiguous axial CT images were obtained through the paranasal sinuses, without intravenous contrast, with coronal and sagittal multiplanar reformations. FINDINGS: NASAL CAVITY: Septum: The nasal septum is slightly deviated to the left with left-sided spurring. Right: Clear Left: Clear SINUSES AND DRAINAGE PATHWAYS: Frontal sinuses: Unremarkable. Maxillary sinuses: Unremarkable Ethmoid sinuses: Unremarkable. Ostiomeatal complex: Patent without obstruction or occlusion. Sphenoid sinuses: Unremarkable. Anatomic variations: No significant variations. Orbits: Unremarkable. Anterior cranial fossa: Normal. Other findings: None. IMPRESSION: THE PARANASAL SINUSES ARE CLEAR, WITHOUT EROSION, OSTEITIS, OR AIR-FLUID LEVEL
== END 2017-12-17 01:02 | disposition home or self-care (01) ==
LOC: ED 20:36
DX: G44.209 Tension-type headache, unspecified, not intractable (principal); Z72.820 Sleep deprivation
CPT/HCPCS: 70486; 99282; A9270-GY

== ENCOUNTER 2017-12-21 12:00 | Emergency (ER) | payer OTHER ==
[2017-12-21] MEDS ORDERED: Lidocaine 2% VISCOUS* 15 ML UDC SWISH SPIT ONE (12:45)
[2017-12-21 13:19] LABS: Hematocrit 36 % (35-47); Hemoglobin 11.8 g/dl (12.0-16.0); Mean Corpuscular HGB Conc 33 g/dl (31-36); Mean Corpuscular Hemoglobin 26 pg (27-31); Mean Corpuscular Volume 80 fL (80-97); Mean Platelet Volume 8.8 um3 (7.4-10.4); Platelet Count 128 10^3/ul (150-450); Red Blood Count 4.47 10^6/ul (4.0-5.4); Red Cell Distribution Width 16 % (10.5-15); White Blood Count 13.6 10^3/ul (3.5-10.8)
[2017-12-21] MEDS ORDERED: Acetaminophen ADULT LIQ* 650 MG/20.3 ML UDC PO ONE (13:23)
[2017-12-21 13:56] LABS: EGFR Non-African American 74.5 (>60)
[2017-12-21] MEDS ORDERED: Dexamethasone Oral Solution* 1 MG/ML 10 ML UDC (10 MG) PO ONE (14:14)
[2017-12-21] MEDS ORDERED: Penicillin VK LIQ* 250 MG/5 ML BTL PO ONE (14:15)
[2017-12-21 15:20] VITALS: BP 105/73
--- NOTE | 2017-12-28 09:07 | ED ---
Chidi Villalobos Jennifer, scribed for Dustin Lam MD on 12/21/17 at 1243 . Throat Pain/Nasal Congestion - HPI Summary HPI Summary: The patient is a 32 year old female who presents with sore throat and upper respiratory infection since yesterday. The patient has no voice due to sore throat. She states the left tonsil hurts more than the right. She additionally complains of fever, diarrhea, abdominal pain, and coughing up blood. She reports she last took Ibuprofen this morning. - History of Current Complaint Chief Complaint: EDUpperRespComplaint Time Seen by Provider: 12/21/17 12:20 Hx Obtained From: Patient Onset/Duration: Sudden Onset, Lasting Days - began yesterday, Still Present, Worse Since Severity: Severe Cough: Productive - Blood - Allergies/Home Medications Allergies/Adverse Reactions: Allergies Allergy/AdvReac Type Severity Reaction Status Date / Time latex Allergy Rash And Verified 12/21/17 12:01 Itching Home Medications: Home Medications Ibuprofen TAB* [Motrin TAB* 800 MG] 800 mg PO Q6H PRN 12/21/17 [History Confirmed 12/21/17] PMH/Surg Hx/FS Hx/Imm Hx Endocrine/Hematology History: Denies: Hx Diabetes Cardiovascular History: Denies: Hx Pacemaker/ICD Musculoskeletal History: Reports: Other Musculoskeletal History - neck impingement, herniated discs Psychiatric History: Reports: Hx Depression Denies: Hx Anxiety, Hx Eating Disorder, Hx of Violent Episodes Against Others - Immunization History Date of Tetanus Vaccine: UTD Date of Influenza Vaccine: 2015 Infectious Disease History: No Infectious Disease History: Denies: Traveled Outside the [place] in Last 30 Days - Family History Known Family History: Negative: Cardiac Disease - Social History Alcohol Use: None Hx Substance Use: No Substance Use Type: Reports: None Hx Tobacco Use: No Smoking Status (MU): Never Smoked Tobacco Review of Systems Positive: Fever. Negative: Chills Negative: Erythema Positive: Sore Throat Negative: Chest Pain Positive: Cough - blood. Negative: Shortness Of Breath Positive: Abdominal Pain, Diarrhea. Negative: Vomiting, Nausea Negative: dysuria, hematuria Negative: Myalgia, Edema Negative: Rash Neurological: Negative - Dizziness All Other Systems Reviewed And Are Negative: Yes Physical Exam - Summary Physical Exam Summary: Constitutional: High pitched voice. Apepars to be painful to speak. Well- developed, Well-nourished, Alert. (-) Distressed Skin: Warm, Dry HENT: Tonsillar exudate on left side. Lymphadenopathyt on left side. Normocephalic; Atraumatic Eyes: Conjunctiva normal Neck: Musculoskeletal ROM normal neck. (-) JVD, (-) Stridor, (-) Tracheal deviation Cardio: Rhythm regular, rate normal, Heart sounds normal; Intact distal pulses; The pedal pulses are 2+ and symmetric. Radial pulses are 2+ and symmetric. (-) Murmur Pulmonary/Chest wall: Effort normal. (-) Respiratory distress, (-) Wheezes, (-) Rales Abd: Soft, (-) Tenderness, (-) Distension, (-) Guarding, (-) Rebound Musculoskeletal: (-) Edema Lymph: (-) Cervical adenopathy Neuro: Alert, Oriented x3 Psych: Mood and affect Normal Triage Information Reviewed: Yes Vital Signs On Initial Exam: Initial Vitals Temp Pulse Resp BP Pulse Ox 100.4 F 123 16 113/70 99 12/21/17 12:04 12/21/17 12:04 12/21/17 12:04 12/21/17 12:04 12/21/17 12:04 Vital Signs Reviewed: Yes Diagnostics - Vital Signs Vital Signs Temp Pulse Resp BP Pulse Ox 12/21/17 12:04 100.4 F 123 16 113/70 99 - Laboratory Result Diagrams: 12/21/17 13:07 12/21/17 13:07 Lab Statement: Any lab studies that have been ordered have been reviewed, and results considered in the medical decision making process. Re-Evaluation - Re-Evaluation First Eval Re-Evaluation Time: 14:26 Change: Unchanged Comment: The patient is tolerating secretions. She received steriods and antibiotics here. EENT Course/Dx - Course Course Of Treatment: The patient is a 32 year old female who presents with sore throat and upper respiratory infection since yesterday. In the ED course the patient was given Xylocaine, Tylenol, Decadron, and Penicillin. Bloodwork was obtained. Rapid strep test was POSITIVE A. The patient is diagnosed with strep pharyngitis. I do not suspect abscess. The patient is instructed to follow up with PCP in three days. - Diagnoses Provider Diagnoses: Strep pharyngitis Discharge - Sign-Out/Discharge Documenting (check all that apply): Discharge/Admit/Transfer - Discharge Plan Condition: Stable Disposition: HOME Prescriptions: Penicillin VK* LIQ* [Penicillin VK 250 MG/5 ML* LIQ*] 500 mg PO BID #200 ml Patient Education Materials: Pharyngitis (ED), Strep Throat (ED) Referrals: Jj Funez MD [Primary Care Provider] - 3 Days Additional Instructions: Follow up with your primary care physician in three days. RETURN TO THE EMERGENCY DEPARTMENT FOR CHANGING OR WORSENING SYMPTOMS. The documentation as recorded by the Chidi carlos Jennifer accurately reflects the service I personally performed and the decisions made by , Dustin Lam MD.
== END 2017-12-21 15:18 | disposition home or self-care (01) ==
LOC: ED 12:00
DX: J02.0 Streptococcal pharyngitis (principal); R05 Cough; J02.9 Acute pharyngitis, unspecified
CPT/HCPCS: 36415; 80053; 84702; 85027; 87651; 99282; A9270-GY

== ENCOUNTER 2017-12-22 18:31 | Emergency (ER) | payer OTHER ==
--- OUTSIDE RECORDS SUMMARY | 2017-12-22 18:58 | XMS REPORT ---
:1985 External Reference #:[id number] Author Organization [facility] Address [address] [place] [address] Phone [phone] Care Team Providers Name Role Phone Jj Funez III, MD Primary Care Physician Unavailable Payers Type Date Identification Numbers Payment Provider Subscriber Commercial Policy Number: [id number] [place] Lorrie Jean Group Number: [id number] [facility] 898 PayID: [id number] [place] [address] Workers Compensation Onset: 2016 Policy Number: Nca Comp Lorrie D [id number] Nishant Group Number: [id number] [facility] 700 Group Name: [id number] [place] [address] PayID: [id number] Workers Compensation PayID: [id number] [employer] Lorrie Jean Workers Compensation Effectiv Policy Number: [place] Lorrie Jean e: [id number] Insurance Comp 19 18 Onset: 2017 PayID: [id number] [place] [address] Problems Date Description Provider Status Onset: 11/12/2016 Neck pain Shadi Upton MD Active Onset: 11/12/2016 Sprain of shoulder and upper arm Shadi Upton MD Active Onset: 11/12/2016 Injury of shoulder region Shadi Upton MD Active Onset: 11/12/2016 Brachial neuritis [...] Date Description Comments Lives With Children Occupation Gas Engine Mechanic ETOH Use Denies alcohol use Smoking Patient has never smoked Recreational Drug Use Denies Drug Use Exercise Type/Frequency Does not exercise Exercise Type/Frequency Exercises regularly 3-4 times a week pt walks Allergies, Adverse Reactions, Alerts Date Description Reaction Status Severity Comments 10/06/2016 NKDA active 03/12/2017 Latex active Medications Medication Date Status Form Strength Qnty SIG Indications Ordering Provider Liquid 12/22/ Active Jj Funez M.D. Cephalexin 12/22/ Active Suspension 250mg/5ML 200ml 10 ml Jj Murphy 2018 Rec twice a Dee Dee, day for 10 M.D. days Lidocaine 12/22/ Active Solution 2% 200ml swish and Jj Murphy Viscous 2018 spit 15cc Dee Dee, up to M.D. three times a day as needed / Active 1 tab po Unknown Complete 0000 qd Iron (Ferrous / Active Tablets 256(28Fe) once daily Unknown Gluconate) 0000 mg Ibuprofen / Active Tablets 800mg three Unknown 0000 times a day Valium 11/02/ Hx Tablets 5mg 2tabs take 1-2 Jj Murphy 2018 - tabs 10-15 Dee Dee, 12/09/ min prior M.D. 2017 to mri Lidocaine 01/06/ Hx Patches 5% 30uni Not Using M54.2 Jj Murphy 2017 - ts At This Dee Dee, 04/06/ Time M.D. 2016 (never took secondary to insurance) Methocarbamol 11/06/ Hx Tablets 750mg 60tab 1 po twice M54.5 Jj Murphy 2017 - s a day as Dee Dee, 12/23/ needed M.D. 2017 Diazepam / Hx Tablets 5mg Sarmast, 0000 - Ottoniel, 2016 Ibuprofen / Hx Tablets 600mg Arizmendi, 0000 - Jj 2016 Oxycodone-Aceta / Hx Tablets 5-325mg Arizmendi, minophen 0000 - Jj, 2016 Gabapentin / Hx Capsules 300mg 90cap 1 by mouth Jj EJohnny 0000 - s corrie Funez, 12/23/ times a M.D. 2016 day Quetiapine / Hx Tablets 100mg Nygren, Fumarate 0000 - Tabitha, 2016 [place] / Hx Capsules 300mg Nygren, Carbonate 0000 - Tabitha, 2016 Tylenol Extra / Hx Tablets 500mg take 2 by Unknown Strength 0000 - mouth prn 08/12/ pain qday 2016 Zantac 150 / Hx Tablets 150mg 1 by mouth Unknown Maximum 0000 - twice a Strength day 2016 Penicillin G / Hx Solution Rec [id number] 2.4 Unknown Potassium 0000 - it million 12/22/ units x1 2017 Medications Administered in Office Medication Date Status [...] Alexsandra Vital Signs Date Vital Result Comment 12/22/2017 Height 63.5 inches 5'3.50" Weight 157.00 lb Heart Rate 93 /min BP Systolic Sitting 115 mmHg BP Diastolic Sitting 82 mmHg Body Temperature 98.7 F states 104 yesterday O2 % BldC Oximetry 98 % BMI (Body Mass Index) 27.4 kg/m2 12/15/2017 Height 63.5 inches 5'3.50" Weight 167.50 [...] Test Result H/L Range Note Laboratory test 12/21/2017 Rapid Strep POSITIVE Negative 1 finding Molecular Laboratory test 12/21/2017 Rapid Strep A SEE RESULT BELOW 2 finding CBC No Diff 12/21/2017 White Blood Count 13.6 10^3/uL High 3.5-10.8 Red Blood Count 4.47 10^6/uL 4.0-5.4 Hemoglobin 11.8 g/dL Low 12.0-16.0 Hematocrit 36 % 35-47 Mean Corpuscular Volume 80 fL 80-97 Mean Corpuscular Hemoglobin 26 pg Low 27-31 Mean Corpuscular HGB Conc 33 g/dL 31-36 Red Cell Distribution Width 16 % High 10.5-15 Platelet Count 128 10^3/uL Low 150-450 Mean Platelet Volume 8.8 um3 7.4-10.4 Laboratory test finding 12/21/2017 HCG 0.68 mIU/mL 3 Comp Metabolic Panel 12/21/2017 Sodium 137 mmol/L Low 139-145 Potassium 3.1 mmol/L Low 3.5-5.0 Chloride 103 mmol/L 101-111 Co2 Carbon Dioxide 22 mmol/L 22-32 Anion Gap 12 mmol/L High 2-11 Glucose 102 mg/dL High 70-100 Blood Urea Nitrogen 13 mg/dL 6-24 Creatinine 0.89 mg/dL 0.51-0.95 BUN/Creatinine Ratio 14.6 8-20 Calcium 8.9 mg/dL 8.6-10.3 Total Protein 7.0 g/dL 6.4-8.9 Albumin 3.7 g/dL 3.2-5.2 Globulin 3.3 g/dL 2-4 Albumin/Globulin Ratio 1.1 1-3 Total Bilirubin 1.50 mg/dL High 0.2-1.0 Alkaline Phosphatase 46 U/L 34-104 Alt 17 U/L 7-52 Ast 22 U/L 13-39 Egfr Non- 74.5 >60 Egfr 95.8 >60 4 Laboratory test finding 09/30/2017 C Reactive Protein 1.91 mg/L < 5.00 5 Erythrocyte Sed Rate 11 mm/Hr 0-14 CBC [...] Serum 09/30/2017 Vitamin B12 456 pg/mL 180-914 6 Folic Acid (Folate) > 20.00 ng/mL >3.99 Laboratory test finding 09/30/2017 Lyme Disease Serology Negative Negative 7 Inr/Protime 08/08/2017 Inr 0.80 0.77-1.02 8 Laboratory test finding 08/08/2017 Partial Thrombo Time [...] Blood Cells % 0.1 Laboratory test finding 08/08/2017 C Reactive Protein 72.47 mg/L High &lt ; 5.00 9 Lactic Acid 0.8 mmol/L 0.5-2.0 10 Comp Metabolic Panel 08/08/2017 Sodium 136 mmol/L [...] Egfr Non- 109.7 >60 Egfr 141.1 >60 11 Laboratory test finding 03/04/2017 HCG 96669.00 mIU/mL 12 Basic Metabolic Panel 03/04/2017 Sodium 133 mmol/L 133-145 Potassium 3.5 mmol/L 3.5-5.0 Chloride 105 mmol/L 101-111 Co2 Carbon Dioxide 20 mmol/L Low 22-32 Anion Gap 8 mmol/L 2-11 Glucose 93 mg/dL 70-100 Blood Urea Nitrogen 8 mg/dL 6-24 Creatinine 0.54 mg/dL 0.51-0.95 BUN/Creatinine Ratio 14.8 8-20 Calcium 9.6 mg/dL 8.6-10.3 Egfr Non- 133.5 >60 Egfr 171.7 >60 13 Urinalysis Profile 03/04/2017 Urine Color Yellow Urine Appearance Clear Urine Specific [place] 1.024 1.010-1.030 Urine pH 5.0 5-9 Urine [...] 150-450 Mean Platelet Volume 9 um3 7.4-10.4 Basic Metabolic Panel 02/19/2017 Sodium 134 mmol/L 133-145 14 Potassium 3.9 mmol/L 3.5-5.0 14 Chloride 102 mmol/L 101-111 14 Co2 Carbon Dioxide 27 mmol/L 22-32 14 Anion Gap 5 mmol/L 2-11 14 Glucose 87 mg/dL 70-100 14 Blood Urea Nitrogen 10 mg/dL 6-24 14 Creatinine 0.55 mg/dL 0.51-0.95 14 BUN/Creatinine Ratio 18.2 8-20 14 Calcium 9.5 mg/dL 8.6-10.3 14 Egfr Non- 130.7 >60 14 Egfr 168.1 >60 14, 15 Laboratory test finding 02/19/2017 C Reactive Protein 7.33 mg/L High < 5.00 14, 16 Erythrocyte Sed Rate 32 mm/Hr High 0-14 14, 17 Magnesium 2.1 mg/dL 1.9-2.7 14, 18 Xray 01/25/2017 MRI Cervical Spine Wo <pending> MRI Lumbar Spine W/O <pending> 1 Ship Joiner: [id number] 2 SEE RESULT BELOW Name: LORRIE JEAN : [address]: Dustin Lam MD Acct: [id number] Unit: [id number] AGE: 32 Location: ED Re12/21/17 SEX: F Status: REG ER SPEC: [id number] CA: 12/21/17 ROBB SHIN: Dustin Lam MD REQ: [id number] RECD: 12/21/17 STATUS: ANTONINA MOLINA DR: Jj Funez III, MD _ SOURCE: THROAT SPDESC: ORDERED: Strep A Request Procedure Result Reported Site Rapid Strep A Request Final 12/21/17 133 ML Specimen received for Rapid Strep A Molecular testing * ML - Main Lab . END OF REPORT DEPARTMENT OF PATHOLOGY, [address] [place] [address] Fritz Mayo M.D. Director [facility] # [id number] 3 <5.0 Negative 5.0 - 25.0 Indeterminate (Repeat testing recommended after 72 hours) >25.0 Positive Perimenopausal women can display HCG levels of up to 20 mIU/mL 4 Because ethnic data is not always readily [...] 15-29 5 Kidney failure <15 (or dialysis) 5 Acute inflammation: >10.00 6 Normal Range 180 to 914 Indeterminate Range 145 to 180 Deficient Range <145 7 Serologic response to B. burgdorferi infection is not detected, but cannot rule out early infection during which low or undetectable antibody levels to B. burgdorferi may be present. If clinically indicated, a new serum specimen should be submitted in 7-14 days. Test Performed by: [facility] [address] [place] [address] 8 Please note the change in INR reference range effective 17. 9 Acute inflammation: >10.00 10 [facility] Severe Sepsis and Septic Shock Management Bundle Measure requires all lactic acids initially measuring >2.0 mmol/L be repeated. 11 Because ethnic data is not always [...] 5 Kidney failure <15 (or dialysis) 12 <5.0 Negative 5.0 - 25.0 Indeterminate (Repeat testing recommended after 72 hours) >25.0 Positive Perimenopausal women can display HCG levels of up to 20 mIU/mL 13 Because ethnic data is not always readily [...] 15-29 5 Kidney failure <15 (or dialysis) 14 [id number] 15 Because ethnic data is not always readily [...] 15-29 5 Kidney failure <15 (or dialysis) 16 Acute inflammation: >10.00 17 [id number] 18 [id number] Procedures Date CPT Code Description Status 07/19/2017 Injection, Carpal Tunnel Completed 07/19/2017 Injection, Carpal Tunnel Completed 07/19/2017 Injection, Carpal Tunnel Completed 07/06/2017 Inject/Drain Joint/Bursa Major Completed 07/06/201737345 Inject/Drain Joint/Bursa Major Completed 06/04/2017 42711 Nerve Conduction, Sensory Completed 06/04/2017 92047 Nerve Conduction, Motor W/F-Wave Study Completed 06/04/2017 39754 Nerve Conduction, Motor W/O F-Wave Study Completed 06/04/2017 07194 Needle Electromyography Complete, Five Or More Muscles Completed Studied 06/02/2017 82643 Holter Monitor Review (24 hr)dr puentes & lynn Completed only 06/02/2017 52054 ECG Monitor/Recording W/Visual Superimposition Scanning Completed 06/01/2017 37444 ECG Monitor/Recording W/Visual Superimposition Scanning Completed 06/01/2017 72968 ECG Monitor/Recording W/Visual Superimposition Scanning Completed 05/28/2017 86233 ECHO Transthoracic, Real-Time 2D With Doppler And Color Completed Flow 05/28/2017 89794 ECHO Transthoracic, Real-Time 2D With Doppler And Color Completed Flow 02/11/201759388 Inject/Drain Joint/Bursa Major Completed Encounters Type Date Location Provider CPT E/M Dx Office Visit 12/14/2017 11:00a [facility] [place] [address] M25.561 C.M.A. M25.562 M76.52 M17.12 M17.11 Office Visit 12/10/2017 3:00p [facility] Myranda Marshall M.D. 96858 R20.2 Services Of [facility] M50.222 Office Visit 11/17/2017 11:40a [facility] Jj Funez, 13926 M54.5 - Robert Gardner Office Visit 10/21/2017 11:00a [facility] [place] [address] M25.561 C.M.A. M25.562 M76.52 M17.12 M17.11 M22.2x1 M22.2x2 Office Visit 09/30/2017 9:00a [facility] Jj Funez, 25973 M79.601 - Robert Gardner M79.602 M54.5 Office Visit 09/16/2017 10:45a [facility] Marlene Raya 05399 M54.12 Of C.M.AJohnny RPA-C Office Visit 09/07/2017 10:45a [place] [address] S46.011A Of Daniel S46.101A S46.011A S46.011D Office Visit 08/13/2017 11:40a [facility] Medicine - Jj Funez, 36511 R51 Robert Gardner M54.5 Office Visit 08/09[facility]2017 [facility] [address] R74.0 Assoc,pc [facility] DIRECT[facility] Hospitalists O90.89 G97.1 Office Visit 08/08/2017 8:27a [facility] [address] G97.1 Hospitalists R74.0 O90.89 Office Visit 07/19/2017 10:30a [facility] Francisca Mcfadden, 88361 G56.03 Of Daniel Gardner G56.22 G56.21 G56.22 G56.03 Office Visit 07/06/2017 11:40a [facility] Internal Medicine Jj Funez, 35627 M79.643 - Robert Gardner Office Visit 07/06/2017 10:15a [place] [address] S46.011D Of Daniel R20.0 M54.2 S46.011A S46.101A S46.011D R20.0 Office Visit 06/08/2017 2:20p [facility] Internal Medicine - Jj Funez, 23848 R55 Robert Gardner Office Visit 05/19/2017 2:40p [facility] - Jj Funez, 83597 R55 Robert Gardner Office Visit 05/04/2017 2:15p [facility] [place] [address] M54.2 Daniel M54.16 S46.011A S46.101A S46.011D Office Visit 04/07/2017 3:50p [facility] Jj Funez, 56471 M54.2 - Robert Gardner M54.16 Office Visit 04/07/2017 3:40p [facility] Jj Funez, 07681 G43.109 - Robert Gardner Z33.1 M54.5 M54.2 Office Visit 03/12/2017 10:00a [facility] Myranda Marshall M.D. 61934 G43.109 Services Of [facility] Z33.1 M54.16 G43.109 Z33.1 M54.16 Office Visit 02/17/2017 4:00p [facility] Medicine Jj Funez, 73942 M54.5 - Robert Gardner M54.2 Office Visit 02/17/2017 3:40p [facility] - jJ Funez, 65134 R51 Robert Gardner Office Visit 02/11/2017 1:15p [facility] [place] [address] M54.2 C.M.A. S46.011A S46.101A M54.12 S46.011D M54.12 Office Visit 01/06/2017 11:40a [facility] Jj Funez, 90511 M54.2 - Robert Gardner R51 Office Visit 12/24/2016 10:00a [facility] [place] [address] M54.2 C.M.A. S46.011A S46.101A M54.12 Office Visit 11/12/2016 2:00p [facility] [place] [address] M54.2 C.M.A. M54.2 S46.011A S46.011A S46.101A S46.101A M54.12 S46.011A Office Visit 11/06/2016 11:40a [facility] Jj Funez, 81380 M54.2 - Robert Gardner M54.5 M25.511 F34.1 Plan of Care Future Appointment(s):01/27/2018 9:30 am - Myranda Marshall M.D. at [facility]
[2017-12-22] MEDS ORDERED: Dexamethasone IV* 4 MG/ML 1 ML (4 MG) IV SLOW PU ONE (19:08)
[2017-12-22] MEDS ORDERED: NS 0.9% 1000 ML* 1,000 ML IV ONE ×2 (19:08→22:01)
[2017-12-22] MEDS ORDERED: Al Hydrox/Mg Hydrox/Simet LIQ* 30 ML UDC PO ONE (19:09)
[2017-12-22] MEDS ORDERED: Lidocaine 2% VISCOUS* 15 ML UDC PO ONE (19:09)
[2017-12-22] MEDS ORDERED: Ondansetron INJ* 2 MG/ML VIAL IV ONE (19:09)
[2017-12-22] MEDS ORDERED: Ketorolac INJ* 30 MG/ML 1 ML VIAL IV PUSH ONE (19:11)
--- NOTE | 2017-12-22 19:14 | ED ---
GI/ HPI - HPI Summary HPI Summary: 32-year-old female presents with vomiting today. She states that yesterday she was diagnosed with strep. She has had a sore throat for 3 days. She states that is not really improving although has only taken 4 dose of the PCN. She denies any fevers. She denies any sinus congestion. She denies any cough. She denies any chest pressure or SOB. States after she vomited she developed epigastric pain. She states she is still able to swallow but is not able to eat much due to the swelling. She states she feels dehydrated. She does not have a history of strep. She also had diarrhea yesterday. No one else is sick. She has no medical conditions. - History of Current Complaint Chief Complaint: EDAbdPain Time Seen by Provider: 12/22/17 19:01 Stated Complaint: VOMITING Pain Intensity: 10 - Additional Pertinent History Primary Care Physician: NAHEED - Allergy/Home Medications Allergies/Adverse Reactions: Allergies Allergy/AdvReac Type Severity Reaction Status Date / Time latex Allergy Rash And Verified 12/21/17 12:01 Itching PMH/Surg Hx/FS Hx/Imm Hx Endocrine/Hematology History: Denies: Hx Diabetes Cardiovascular History: Denies: Hx Pacemaker/ICD Musculoskeletal History: Reports: Other Musculoskeletal History - neck impingement, herniated discs Sensory History: Denies: Hx Contacts or Glasses, Hx Hearing Aid Opthamlomology History: Denies: Hx Contacts or Glasses Psychiatric History: Reports: Hx Depression Denies: Hx Anxiety, Hx Eating Disorder, Hx of Violent Episodes Against Others - Immunization History Date of Tetanus Vaccine: UTD Date of Influenza Vaccine: 2015 Infectious Disease History: No Infectious Disease History: Denies: Traveled Outside the [place] in Last 30 Days - Family History Known Family History: Positive: None Negative: Cardiac Disease - Social History Alcohol Use: None Hx Substance Use: No Substance Use Type: Reports: None Hx Tobacco Use: No Smoking Status (MU): Never Smoked Tobacco Review of Systems Negative: Fever Positive: Sore Throat Negative: Chest Pain Negative: Shortness Of Breath Positive: Abdominal Pain, Vomiting, Diarrhea, Nausea All Other Systems Reviewed And Are Negative: Yes Physical Exam Triage Information Reviewed: Yes Vital Signs On Initial Exam: Initial Vitals Temp Pulse Resp BP Pulse Ox 98.4 F 106 16 103/73 100 12/22/17 18:35 12/22/17 18:35 12/22/17 18:35 12/22/17 18:35 12/22/17 18:35 Vital Signs Reviewed: Yes Appearance: Positive: Well-Appearing Skin: Positive: Warm, Dry Head/Face: Positive: Normal Head/Face Inspection Eyes: Positive: Normal, EOMI, MINE, Conjunctiva Clear ENT: Positive: Pharyngeal erythema, TMs normal, Tonsillar swelling - +3, Uvula midline, Other - soft palate symmetric. Negative: Tonsillar exudate, Trismus, Muffled voice Neck: Positive: Supple, Tenderness @ - cervical lymph nodes, Enlarged Nodes @ - cervical Respiratory/Lung Sounds: Positive: Clear to Auscultation, Breath Sounds Present Cardiovascular: Positive: Normal, RRR Abdomen Description: Positive: Soft, Other: - mild tenderness epigastric Bowel Sounds: Positive: Present Musculoskeletal: Positive: Normal Psychiatric: Positive: Normal Diagnostics - Vital Signs Vital Signs Temp Pulse Resp BP Pulse Ox 12/22/17 18:35 98.4 F 106 16 103/73 100 - Laboratory Lab Statement: Any lab studies that have been ordered have been reviewed, and results considered in the medical decision making process. Re-Evaluation - Re-Evaluation First Eval Re-Evaluation Time: 22:51 Change: Improved Comment: feeling better, throat improved, able to tolerate liquids, unable to get labs after 7 attempts GIGU Course/Dx - Course Course Of Treatment: 32-year-old female presents with vomiting today. She states that yesterday she was diagnosed with strep. She has had a sore throat for 3 days. She states that is not really improving although has only taken 4 dose of the PCN. She denies any fevers. She denies any sinus congestion. She denies any cough. She denies any chest pressure or SOB. States after she vomited she developed epigastric pain. She states she is still able to swallow but is not able to eat much due to the swelling. She states she feels dehydrated. She does not have a history of strep. She also had diarrhea yesterday. No one else is sick. She has no medical conditions. On exam pharynx and tonsils +3. Uvula midline. Soft palate symmetric. Lungs clear to auscultation abdomen mild tenderness epigastric. We'll give some fluids and Zofran for nausea. We'll get GI cocktail for the epigastric and throat pain. We'll give dose of Decadron. Unable to get labs after 7 tries. Since patient able to tolerate liquids and some food will discharge home without labs. Vomiting likely due to strept. will send home on decadron and zofran for nausea. patient understand and agrees with plan. - Diagnoses Differential Diagnoses - Female: Vomiting, Other - strept, peritonsillar abscess Provider Diagnoses: Strep throat, Vomiting Discharge - Sign-Out/Discharge Documenting (check all that apply): Discharge/Admit/Transfer - Discharge Plan Condition: Good Disposition: HOME Prescriptions: Dexamethasone TAB* [Decadron TAB*] 4 mg PO DAILY #4 tab Ondansetron ODT TAB* [Zofran 4 MG Odt TAB*] 4 mg PO Q6H PRN #16 tab.odt PRN Reason: Nausea Patient Education Materials: Acute Nausea and Vomiting (ED) Referrals: Jj Funez MD [Primary Care Provider] - Additional Instructions: Can take Zofran every 6 hours as needed for nausea Continue antibiotic as previously prescribed Take decadron once a day for 4 days Magic mouthwash 5ml swish and spit can use 4x a day Drink small amounts of fluid as tolerated When able to eat follow BRAT diet: Bananas, rice, applesauce, toast Take ibuprofen or Tylenol for pain/fever as needed every 6 hours Follow up with primary within 5 days Return to ED if develop any new or worsening symptoms - Billing Disposition and Condition Condition: GOOD Disposition: HOME
[2017-12-22] MEDS ORDERED: O ndansetron ODT 4MG 2TAB PRPK 4 MG PAK PO ONE (22:51)
[2017-12-22 23:04] VITALS: BP 122/74
== END 2017-12-22 22:59 | disposition home or self-care (01) ==
LOC: ED 18:31
DX: J02.0 Streptococcal pharyngitis (principal); R10.9 Unspecified abdominal pain; R11.2 Nausea with vomiting, unspecified; R19.7 Diarrhea, unspecified
CPT/HCPCS: 96374; 96375; 99283; A9270-GY; J1100; J1885; J2405

== ENCOUNTER 2018-01-14 11:48 | Emergency (ER) | payer OTHER ==
[2018-01-14] MEDS ORDERED: Ketorolac INJ* 60 MG/2 ML VIAL IM ONE (12:47)
[2018-01-14] MEDS ORDERED: Dexamethasone IV* 4 MG/ML 1 ML (4 MG) IM ONE (12:47)
--- NOTE | 2018-01-14 12:58 | ED ---
Throat Pain/Nasal Congestion - HPI Summary HPI Summary: 32 female presents with sore throat for the past couple days. States she has history of strep. She admits difficulty swallowing. She still able to drink okay. She admits to ear pain. She denies any sinus congestion. She denies any postnasal drip. She denies any cough. Denies any bowel pain, fatigue, nausea, vomiting, or diarrhea. She states amoxicillin causes vomiting so is requesting not to take such. She states she has strept a month ago. - History of Current Complaint Chief Complaint: EDThroatPain Time Seen by Provider: 01/14/18 12:18 - Allergies/Home Medications Allergies/Adverse Reactions: Allergies Allergy/AdvReac Type Severity Reaction Status Date / Time latex Allergy Rash And Verified 01/14/18 12:28 Itching PMH/Surg Hx/FS Hx/Imm Hx Endocrine/Hematology History: Denies: Hx Diabetes Cardiovascular History: Denies: Hx Pacemaker/ICD Musculoskeletal History: Reports: Other Musculoskeletal History - neck impingement, herniated discs Sensory History: Denies: Hx Contacts or Glasses, Hx Hearing Aid Opthamlomology History: Denies: Hx Contacts or Glasses Psychiatric History: Reports: Hx Depression Denies: Hx Anxiety, Hx Eating Disorder, Hx of Violent Episodes Against Others - Immunization History Date of Tetanus Vaccine: UTD Date of Influenza Vaccine: 2015 Infectious Disease History: No Infectious Disease History: Denies: Traveled Outside the [place] in Last 30 Days - Family History Known Family History: Positive: None Negative: Cardiac Disease - Social History Alcohol Use: None Hx Substance Use: No Substance Use Type: Reports: None Hx Tobacco Use: No Smoking Status (MU): Never Smoked Tobacco Review of Systems Negative: Fever Positive: Sore Throat Negative: Chest Pain Negative: Shortness Of Breath All Other Systems Reviewed And Are Negative: Yes Physical Exam Triage Information Reviewed: Yes Vital Signs On Initial Exam: Initial Vitals Temp Pulse Resp BP Pulse Ox 98.8 F 126 18 117/89 96 01/14/18 12:09 01/14/18 12:09 01/14/18 12:09 01/14/18 12:09 01/14/18 12:09 Vital Signs Reviewed: Yes Appearance: Positive: Well-Appearing Skin: Positive: Warm, Dry Head/Face: Positive: Normal Head/Face Inspection Eyes: Positive: Normal, EOMI, MINE, Conjunctiva Clear ENT: Positive: Pharyngeal erythema, Tonsillar swelling - +4, Uvula midline, Other - soft palate symmetric. Negative: Tonsillar exudate Neck: Positive: Supple, Nontender, No Lymphadenopathy Respiratory/Lung Sounds: Positive: Clear to Auscultation, Breath Sounds Present Cardiovascular: Positive: Normal, RRR Abdomen Description: Positive: Nontender, Soft Bowel Sounds: Positive: Present Musculoskeletal: Positive: Normal Neurological: Positive: Normal Psychiatric: Positive: Normal Diagnostics - Vital Signs Vital Signs Temp Pulse Resp BP Pulse Ox 01/14/18 12:09 98.8 F 126 18 117/89 96 - Laboratory Lab Statement: Any lab studies that have been ordered have been reviewed, and results considered in the medical decision making process. EENT Course/Dx - Course Course Of Treatment: 32 female presents with sore throat for the past couple days. States she has history of strep. She admits difficulty swallowing. She still able to drink okay. She admits to ear pain. She denies any sinus congestion. She denies any postnasal drip. She denies any cough. Denies any bowel pain, fatigue, nausea, vomiting, or diarrhea. She states amoxicillin causes vomiting so is requesting not to take such. She states she has strept a month ago. On exam pharynx erythematous. Tonsils normal. Uvula midline. Soft palate symmetric. Strep positive. We'll prescribe Keflex. Gave dosed Decadron and feeling better. We'll prescribe Decadron and magic mouth wash. Patient understands agrees with plan. - Differential Diagnoses Differential Diagnoses: Laryngitis, Tonsilitis, URI/Bronchitis - Diagnoses Provider Diagnoses: Streptococcus pharyngitis Discharge - Sign-Out/Discharge Documenting (check all that apply): Discharge/Admit/Transfer - Discharge Plan Condition: Good Disposition: HOME Prescriptions: Cephalexin SUSP* [Keflex SUSP 250 MG/5 ML*] 500 mg PO BID #1 oral.susp Dexamethasone Oral Solution* [Decadron Oral Solution*] 4 mg PO DAILY #1 bottle Magic Mouth Was-LINDA/MAAL/LIDO* 5 ml SWISH SPIT QID #100 ml Patient Education Materials: Strep Throat (ED) Referrals: Jj Funez MD [Medical Doctor] - Doyle Lancaster MD [Medical Doctor] - Additional Instructions: take keflex 10ml twice a day for 10 days take decadron 4ml once a day for 4 days Magic mouthwash 5ml swish and spit can use 4x a day Can gargle salt water Can use cough drops or products such as cloraseptic spray Take Tylenol or ibuprofen every 6 hours Follow up with primary Return to ED if develop fever does not respond to Tylenol or ibuprofen, inability to swallow, or difficulty breathing or any new or worsening symptoms - Billing Disposition and Condition Condition: GOOD Disposition: HOME
[2018-01-14] MEDS ORDERED: Cephalexin SUSP* 250 MG/5 ML ORAL.SUSP 100 ML BTL PO ONE (13:30)
[2018-01-14 14:12] VITALS: BP 138/82
== END 2018-01-14 14:11 | disposition home or self-care (01) ==
LOC: ED 11:48
DX: J02.0 Streptococcal pharyngitis (principal)
CPT/HCPCS: 87651; 96372; 99282; A9270-GY; J1100; J1885